=== PATIENT | male | born 1935 | race Caucasian/White ===

== ENCOUNTER → 2016-10-29 | Outpatient (CLI) | payer MEDICARE, BC ==
[~2016-10-29] MED LIST: ACTOS15 MG PO; ASP81TEC PO; DOCU100T7 PO; DPAS20025 PO; FRS325T PO; HYDR-2890 PO; LABE100T2 PO; LISI10TA PO; METO-272 PO; MULT-608 PO; PNT40TEC PO; ROSU20TA14 PO; SIMV40TA2 PO; TRIA1TAB42 PO; WRF2.5T PO
--- OUTSIDE RECORDS SUMMARY | 2016-10-29 13:45 | XMS REPORT | Continuity of Care Document ---
Author Author [facility] Organization [facility] Address Unknown Phone Unavailable Care Team Providers Care Pack Operator Name Role Phone Richard Rodríguez PCP [phone] Source Comments Some departments are not documenting in the electronic medical record. If you do not see the information that you expected, contact Release of Information in the Health Information Management department at [phone] for further assistance in locating additional records.[facility] Active Allergies and Adverse Reactions No Known Allergies Current Medications Prescription Sig. Disp. Refills Start End Date Status Date esomeprazole DR(+) take 40 mg by mouth At 09/11/20 Active (NEXIUM) 40 mg PO CpDR Bedtime Daily. 07 labetalol (NORMODYNE) 200 take 200 mg by mouth 09/11/20 Active mg PO Tab Twice Daily. 07 sucralfate (CARAFATE) 1 take 1 g by mouth Before 09/11/20 Active gram PO Tab Meals and at bedtime. 07 lisinopril (PRINIVIL; take 10 mg by mouth 09/11/20 Active ZESTRIL) 10 mg PO Tab Daily. 07 rosuvastatin (CRESTOR) 20 take 20 mg by mouth At 09/11/20 Active mg PO tablet Bedtime Daily. 07 triamterene/hydrochloroth take 1 Tab by mouth 09/11/20 Active iazide (MAXZIDE-25MG) Daily. 07 37.5/25 mg PO Tab multivitamin (THERAGRAN) take 1 Tab by mouth 09/11/20 Active PO per tablet Daily. [address](+) 09/28/20 Active (NEXIUM) 40 mg PO CpDR 07 tamsulosin (FLOMAX) 0.4 take 1 Cap by mouth Daily 30 3 12/10/20 Active mg PO Cp24 after breakfast. 07 senna/docusate take 2 Tabs by mouth 60 3 10/02/20 Active (SENOKOT-S) 8.6/50 mg PO Daily. Hold for loose 07 Tab stools. hydrocodone/acetaminophen take 1-2 Tabs by mouth 30 0 10/02/20 Active (VICODIN) 5/500 mg PO Tab Every 6 Hours as needed 07 for Pain. Do not exceed 4 grams of tylenol per day. dipyridamole/aspirin 1 Cap Twice Daily. 0 0 10/16/20 Active (AGGRENOX) 200/25 mg PO Restart in two weeks or 07 CM12 after follow up appointment with Dr. Anaya. 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
--- NOTE | 2016-10-29 14:57 | Diagnostic Imaging Report ---
INDICATION: Followup left renal cell carcinoma. Status post partial left nephrectomy. COMPARISON: 01/01/2008. DISCUSSION: Transabdominal sonographic evaluation of the bilateral kidneys and urinary bladder was performed. The kidneys are mildly echogenic, consistent with chronic medical renal disease. No solid renal mass identified. Hypoechoic simple appearing cysts are noted bilaterally measuring 1.8 cm on the right and 2.9 cm on the left. The kidneys are normal in size. The right kidney measures 11.9 cm. The left kidney measures 11.4 cm. No hydronephrosis. The visualized urinary bladder is unremarkable. IMPRESSION: 1. Echogenic kidneys. 2. Benign-appearing cystic changes. Dictated by: Dictated on workstation # [id number]
== END ==
LOC: RAD 13:42
PROVIDERS: ATTEND Family Medicine
DX: Z80.51 Family history of malignant neoplasm of kidney (principal)
CPT/HCPCS: 76770

== ENCOUNTER 2019-11-13 13:56 | Emergency (ER) | payer MEDICARE, BC ==
[~2019-11-13] VITALS: Ht 182 cm; Wt 90.9 kg
[2019-11-13 14:12] LABS: BASOPHILS % (AUTO) 0 % (0-10); EOSINOPHILS # (AUTO) 0.1 10^3/uL (0.0-0.3); EOSINOPHILS % (AUTO) 2 % (0-10); HEMATOCRIT 48 % (40-54); HEMOGLOBIN 16.1 G/DL (13.3-17.7); LYMPHOCYTES # (AUTO) 1.1 X 10^3 (1.0-4.0); LYMPHOCYTES % (AUTO) 14 % (12-44); MEAN CORPUSCULAR HEMOGLOBIN 32 PG (25-34); MEAN CORPUSCULAR HGB CONC 34 G/DL (32-36); MEAN CORPUSCULAR VOLUME 96 FL (80-99); MEAN PLATELET VOLUME 11.5 FL (7.4-10.4); MONOCYTES # (AUTO) 0.9 X 10^3 (0.0-1.0); MONOCYTES % (AUTO) 11 % (0-12); NEUTROPHILS # (AUTO) 5.6 X 10^3 (1.8-7.8); NEUTROPHILS % (AUTO) 73 % (42-75); PLATELET COUNT 214 10^3/uL (130-400); RED CELL DISTRIBUTION WIDTH 14.1 % (10.0-14.5); WHITE BLOOD COUNT 7.7 10^3/uL (4.3-11.0)
[2019-11-13 14:24] LABS: PROTHROMBIN TIME PATIENT 13.3 SEC (12.2-14.7)
[2019-11-13 14:33] LABS: ALANINE AMINOTRANSFERASE 19 U/L (0-55); ALBUMIN 3.9 GM/DL (3.2-4.5); ALKALINE PHOSPHATASE 81 U/L (40-136); BILIRUBIN,TOTAL 0.4 MG/DL (0.1-1.0); BUN/CREATININE RATIO 25; CALCIUM 9.7 MG/DL (8.5-10.1); CARBON DIOXIDE 24 MMOL/L (21-32); CHLORIDE 110 MMOL/L (98-107); CREATININE SERUM 1.22 MG/DL (0.60-1.30); GFR ESTIMATED 57; GLUCOSE 112 MG/DL (70-105); POTASSIUM 4.7 MMOL/L (3.6-5.0); SODIUM 144 MMOL/L (135-145); TOTAL PROTEIN 6.9 GM/DL (6.4-8.2)
[2019-11-13 14:43] LABS: ABG BASE EXCESS 1.1 MMOL/L (-2.5-2.5); ABG OXYGEN SATURATION 92 % (94-100); ABG PCO2 37 MMHG (35-45); ABG PH 7.44 (7.37-7.43); ABG PO2 61 MMHG (79-93)
[2019-11-13 14:45] LABS: INSPIRED O2 2 L; PATIENT TEMP 98.5; VENTILATOR NO
[2019-11-13] MEDS ORDERED: RT-ALBUTEROL/IPRATROPIUM 3 ML (DUONEB) VIAL INH ONE (14:45)
--- NOTE | 2019-11-13 14:51 | Diagnostic Imaging Report ---
INDICATION: Hypoxia. TIME OF EXAM: 02:41 p.m. COMPARISON: No prior studies available for comparison. FINDINGS: Heart size is normal. There appears to be some increased density in the left base obscuring the left hemidiaphragm, suggestive of pneumonia. The right lung is clear. The pulmonary vascularity is unremarkable. No significant effusion or pneumothorax is seen. IMPRESSION: Findings suggestive of left basilar pneumonia. Dictated by: Dictated on workstation # [id number]
[2019-11-13] MEDS ORDERED: cefTRIAXone FOR IV USE 1,000 MG in WATER (STERILE) FOR INJECTION 10 ML IV ONE (15:15)
[2019-11-13 15:25] LABS: BILIRUBIN,URINE NEGATIVE (NEGATIVE); CLARITY,URINE CLEAR; COLOR,URINE YELLOW; GLUCOSE, URINE (UA) NEGATIVE (NEGATIVE); KETONES,URINE NEGATIVE (NEGATIVE); LEUKOCYTE ESTERASE ,URINE NEGATIVE (NEGATIVE); NITRITE,URINE NEGATIVE (NEGATIVE); PH,URINE 5.5 (5-9); PROTEIN,URINE 2+ (NEGATIVE)
[2019-11-13] MEDS ORDERED: AZIT250T12 PO (15:31)
[2019-11-13] MEDS ORDERED: RT-ALBUINH IH (15:31)
--- NOTE | 2019-11-13 15:31 | ED Respiratory ---
General Chief Complaint: Respiratory Problems Stated Complaint: SOA,IRREGULAR HR Nursing Triage Note: SENT OVER FROM DR LARRY OFFICE FOR HYPOXIA. Source: patient Exam Limitations: no limitations History of Present Illness Date Seen by Provider: Nov 13, 2019 Time Seen by Provider: 14:02 Initial Comments This 84-year-old man presents to the emergency room by private vehicle from Dr. Galeano's office due to hypoxia. He was also thought to have an irregular rhythm at the office. He is fairly debilitated and does not walk much. He does not normally require oxygen supplementation. He denies any significant cough or fever. He denies chest pain. He does have a history of A. fib but is in sinus rhythm on presentation. Oxygen saturation is 88 percent on room air on presentation. He is afebrile. Allergies and Home Medications Allergies Coded Allergies: No Known Allergies (Verified Allergy, Unknown, 02/04/06) Home Medications Albuterol Sulfate 1 Puff Puff, 2 PUFF IH Q4H PRN for WHEEZING 1 PUFF = 90 MCG Prescribed by: WARNER MCCONNELL on 11/13/19 1531 Aspirin 81 Mg Tabec, 81 MG PO DAILY, (Reported) Azithromycin 250 Mg Tablet, 250 MG PO UD TAKE 2 TABLETS ON DAY ONE THEN TAKE 1 TABLET DAILY FOR FOUR MORE DAYS Prescribed by: WARNER MCCONNELL on 11/13/19 1531 Docusate Sodium 100 Mg Tablet, 100 MG PO PRN, (Reported) Ferrous Sulfate 325 Mg Tablet, 1 TAB PO DAILY, (Reported) Lisinopril 10 Mg Tablet, 1 EACH PO DAILY, (Reported) Metoprolol Succinate 50 Mg Tab.sr.24h, 1 EACH PO DAILY, (Reported) Rosuvastatin Calcium 20 Mg Tablet, 1 EACH PO DAILY, (Reported) Patient Home Medication List Home Medication List Reviewed: Yes Review of Systems Review of Systems Constitutional: no symptoms reported EENTM: no symptoms reported Respiratory: see HPI Cardiovascular: no symptoms reported Gastrointestinal: no symptoms reported Genitourinary: no symptoms reported Musculoskeletal: see HPI Skin: no symptoms reported Psychiatric/Neurological: See HPI Hematologic/Lymphatic: No Symptoms Reported Immunological/Allergic: no symptoms reported Past Zpvvtjd-Isrlqy-Tijrxb Hx Past Med/Social Hx: Reviewed and Corrections made Patient Social History Alcohol Use: Denies Use Recreational Drug Use: No Smoking Status: Never a Smoker Type Used: Smokeless Tobacco Recent Foreign Travel: No Contact w/Someone Who Travel: No Recent Infectious Disease Expo: No Recent Hopitalizations: Yes (RENAL CA, PROSTATE CA, SKIN CA) Past Medical History Surgeries: Yes (LEFT PARTIAL NEPHRECTOMY, RT TKR) Joint Replacement, Renal Respiratory: No Cardiac: Yes (MITRAL VALVE REGURGITATION) Atrial Fibrillation, Hypertension Neurological: Yes (HX SUBDURAL HEMATOMA, lower extremity weakness with debility ) Reproductive Disorders: No Gastrointestinal: No Musculoskeletal: Yes (Lower extremity weakness, debility) Endocrine: No HEENT: No Cancer: No Psychosocial: No Integumentary: No Blood Disorders: No Physical Exam Vital Signs - First Documented 11/13/19 13:58 Temp 36.5 Pulse 72 Resp 16 B/P (MAP) 176/79 (111) Pulse Ox 88 O2 Delivery Nasal Cannula O2 Flow Rate 2.00 Capillary Refill : Less Than 3 Seconds Height: 6'0.00" Weight: 207lbs. oz. 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, alert, normal mood/affect, oriented x 3, motor weakness (lower extremities) Skin: normal color, warm/dry Focused Exam Lactate Level 11/13/19 14:03: Lactic Acid Level 1.86 Lactic Acid Level Laboratory Tests Test 11/13/19 14:03 Lactic Acid Level 1.86 MMOL/L (0.50-2.00) Progress/Results/Core Measures Suspected Sepsis Recent Fever Within 48 Hours: No Infection Criteria Present: Suspected New Infection New/Unexplained Altered Menta: No Sepsis Screen: No Definite Risk SIRS Temperature: Pulse: 72 Respiratory Rate: 16 Laboratory Tests 11/13/19 14:03: White Blood Count 7.7 Blood Pressure 176 /79 Mean: 111 11/13/19 14:03: Lactic Acid Level 1.86 Laboratory Tests 11/13/19 14:03: Creatinine 1.22, INR Comment 1.0, Platelet Count 214, Total Bilirubin 0.4 Results/Orders Lab Results Laboratory Tests Test 11/13/19 14:03 11/13/19 14:33 11/13/19 15:20 Range/Units White Blood Count 7.7 4.3-11.0 10^3/uL Red Blood Count 4.98 4.35-5.85 10^6/uL Hemoglobin 16.1 13.3-17.7 G/DL Hematocrit 48 40-54 % Mean Corpuscular Volume 96 80-99 FL Mean Corpuscular Hemoglobin 32 25-34 PG Mean Corpuscular Hemoglobin Concent 34 32-36 G/DL Red Cell Distribution Width 14.1 10.0-14.5 % Platelet Count 214 130-400 10^3/uL Mean Platelet Volume 11.5 H 7.4-10.4 FL Neutrophils (%) (Auto) 73 42-75 % Lymphocytes (%) (Auto) 14 12-44 % Monocytes (%) (Auto) 11 0-12 % Eosinophils (%) (Auto) 2 0-10 % Basophils (%) (Auto) 0 0-10 % Neutrophils # (Auto) 5.6 1.8-7.8 X 10^3 Lymphocytes # (Auto) 1.1 1.0-4.0 X 10^3 Monocytes # (Auto) 0.9 0.0-1.0 X 10^3 Eosinophils # (Auto) 0.1 0.0-0.3 10^3/uL Basophils # (Auto) 0.0 0.0-0.1 10^3/uL Prothrombin Time 13.3 12.2-14.7 SEC INR Comment 1.0 0.8-1.4 Activated Partial Thromboplast Time 29 24-35 SEC Sodium Level 144 135-145 MMOL/L Potassium Level 4.7 3.6-5.0 MMOL/L Chloride Level 110 H 98-107 MMOL/L Carbon Dioxide Level 24 21-32 MMOL/L Anion Gap 10 5-14 MMOL/L Blood Urea Nitrogen 30 H 7-18 MG/DL Creatinine 1.22 0.60-1.30 MG/DL Estimat Glomerular Filtration Rate 57 BUN/Creatinine Ratio 25 Glucose Level 112 H 70-105 MG/DL Lactic Acid Level 1.86 0.50-2.00 MMOL/L Calcium Level 9.7 8.5-10.1 MG/DL Corrected Calcium 9.8 8.5-10.1 MG/DL Total Bilirubin 0.4 0.1-1.0 MG/DL Aspartate Amino Transf (AST/SGOT) 20 5-34 U/L Alanine Aminotransferase (ALT/SGPT) 19 0-55 U/L Alkaline Phosphatase 81 40-136 U/L Troponin I < 0.028 <0.028 NG/ML Total Protein 6.9 6.4-8.2 GM/DL Albumin 3.9 3.2-4.5 GM/DL Blood Gas Puncture Site UNK Blood Gas Patient Temperature 98.5 Arterial Blood pH 7.44 H 7.37-7.43 Arterial Blood Partial Pressure CO2 37 35-45 MMHG Arterial Blood Partial Pressure O2 61 L 79-93 MMHG Arterial Blood HCO3 25 23-27 MMOL/L Arterial Blood Total CO2 26.0 21.0-31.0 MMOL/L Arterial Blood Oxygen Saturation 92 L 94-100 % Arterial Blood Base Excess 1.1 -2.5-2.5 MMOL/L Georgi Test UNK Blood Gas Ventilator Setting NO Blood Gas Inspired Oxygen 2 L Urine Color YELLOW Urine Clarity CLEAR Urine pH 5.5 5-9 Urine Specific [place] 1.025 H 1.016-1.022 Urine Protein 2+ H NEGATIVE Urine Glucose (UA) NEGATIVE NEGATIVE Urine Ketones NEGATIVE NEGATIVE Urine Nitrite NEGATIVE NEGATIVE Urine Bilirubin NEGATIVE NEGATIVE Urine Urobilinogen 0.2 < = 1.0 MG/DL Urine Leukocyte Esterase NEGATIVE NEGATIVE Urine RBC (Auto) 1+ H NEGATIVE Urine RBC 2-5 H /HPF Urine WBC NONE /HPF Urine Squamous Epithelial Cells 0-2 /HPF Urine Crystals NONE /LPF Urine Bacteria TRACE /HPF Urine Casts PRESENT /LPF Urine Hyaline Casts 0-2 H /LPF Urine Mucus NEGATIVE /LPF Urine Culture Indicated NO Micro Results Microbiology 11/13/19 Urine Culture - Preliminary, Resulted Gram Negative Sarbjit 11/13/19 Influenza Types A,B Antigen (JOSE L) - Final, Complete My Orders Orders - WARNER SIMMONS MD Cbc With Automated Diff (11/13/19 14:03) Comprehensive Metabolic Panel (11/13/19 14:03) Blood Culture (11/13/19 14:03) Urinalysis (11/13/19 14:03) Urine Culture (11/13/19 14:03) Protime With Inr (11/13/19 14:03) Partial Thromboplastin Time (11/13/19 14:03) Chest 1 View, Ap/Pa Only (11/13/19 14:03) Ed Iv/Invasive Line Start (11/13/19 14:03) Ed Iv/Invasive Line Start (11/13/19 14:03) Ekg Tracing (11/13/19 14:03) Troponin I (11/13/19 14:03) Vital Signs Adult Sepsis Patie Q15M (11/13/19 14:03) O2 (11/13/19 14:03) Remove Rings In Anticipation O (11/13/19 14:03) Lactic Acid Analyzer (11/13/19 14:03) Arterial Blood Gas (11/13/19 14:05) Influenza A And B Antigens (11/13/19 14:08) Albuterol/Ipra Inhalation Soln (Duoneb I (11/13/19 14:45) Svn Small Volume Nebulizer (11/13/19 14:44) Ceftriaxone For Iv Use (Rocephin For I (11/13/19 15:15) Medications Given in ED Vital Signs/I&O 11/13/19 11/13/19 11/13/19 11/13/19 13:58 13:58 15:24 16:05 Temp 36.5 Pulse 72 64 Resp 16 20 B/P (MAP) 176/79 (111) 151/73 Pulse Ox 88 87 96 89 O2 Delivery Nasal Cannula Room Air Nasal Cannula Room Air O2 Flow Rate 2.00 2.00 Capillary Refill : Less Than 3 Seconds Blood Pressure Mean: 111 Progress Note : Time: 14:25 Progress Note Chest x-ray was read as pneumonia. Patient received a DuoNeb treatment and Rocephin. Because of the hypoxia admission was recommended. Patient refused admission had asked to sign out AGAINST MEDICAL ADVICE. Albuterol inhaler and antibiotics were prescribed. ECG Initial ECG Impression Date: Nov 13, 2019 Initial ECG Impression Time: 13:57 Initial ECG Rate: 72 Initial ECG Rhythm: Normal Sinus Comment Sinus rhythm with PACs. No acute ST elevation or depression. Chronic left bundle branch block. Diagnostic Imaging Diagonstic Imaging: Xray Plain Films/CT/US/NM/MRI: chest Comments Chest x-ray viewed by me and report reviewed. See report below: NAME: INDRA ROLON Nadir [facility] REC#: [id number] PT STATUS: REG ER : 1935 PHYSICIAN: WARNER SIMMONS MD ADMIT DATE: 11/13/19/ER Signed Date of Exam:11/13/19 CHEST 1 VIEW, AP/PA ONLY INDICATION: Hypoxia. TIME OF EXAM: 02:41 p.m. COMPARISON: No prior studies available for comparison. FINDINGS: Heart size is normal. There appears to be some increased density in the left base obscuring the left hemidiaphragm, suggestive of pneumonia. The right lung is clear. The pulmonary vascularity is unremarkable. No significant effusion or pneumothorax is seen. IMPRESSION: Findings suggestive of left basilar pneumonia. Dictated by: Dictated on workstation # [id number] Dict: 11/13/19 1446 Trans: 11/13/19 1557 [facility] [id number] Interpreted by: SHANDA LAYNE MD Electronically signed by: SHANDA LAYNE MD 11/13/19 1557 Departure Impression Primary Impression: Left lower lobe pneumonia Qualified Codes: J18.1 - Lobar pneumonia, unspecified organism Additional Impressions: Hypoxia Wheezing Left against medical advice Disposition: 07 AGAINST MEDICAL ADVICE Condition: Against Medical Advice Departure-Patient Inst. Decision time for Depature: 15:29 Referrals: GEOVANNA GALEANO DO (PCP/Family) Primary Care Physician Patient Instructions: Community-Acquired Pneumonia, Adult (DC) Add. Discharge Instructions: You're leaving the hospital AGAINST MEDICAL ADVICE which but she at risk for dangerous consequences from your illness. Lack of inpatient treatment could result in worsening of your condition and possibly . Please complete your antibiotics as prescribed. Use your inhaler as prescribed. Follow-up with Dr. Galeano as soon as possible. Return to care if you would like to proceed with admission or your symptoms worsen. All discharge instructions reviewed with patient and/or family. Voiced understanding. Scripts Albuterol Sulfate (PROAIR HFA) 1 Puff Puff 2 PUFF IH Q4H PRN for WHEEZING, #1 PUFF 1 PUFF = 90 MCG Prov: WARNER SIMMONS MD 11/13/19 Azithromycin (Azithromycin) 250 Mg Tablet 250 MG PO UD, #6 TAB TAKE 2 TABLETS ON DAY ONE THEN TAKE 1 TABLET DAILY FOR FOUR MORE DAYS Prov: WARNER SIMMONS MD 11/13/19 Copy Copies To 1: GEOVANNA GALEANO JOSHUA T MD Nov 13, 2019 15:31
[2019-11-13 15:37] LABS: BACTERIA,URINE TRACE /HPF; HYALINE CASTS, URINE 0-2 /LPF; SQUAMOUS EPITHELIAL CELL,UR 0-2 /HPF
[2019-11-13 16:05] VITALS: BP 151/73
--- NOTE | 2019-11-13 16:05 | NUR ---
ENC TO BRING PT BACK IF PT CONDITION WORSENS
== END 2019-11-13 16:05 | disposition left against medical advice (07) ==
LOC: EDUNIT# 13:56 → ER 13:58
DX: J18.9 Pneumonia, unspecified organism (principal); R09.02 Hypoxemia; R06.2 Wheezing; I10 Essential (primary) hypertension; I48.91 Unspecified atrial fibrillation; Z79.82 Long term (current) use of aspirin; Z85.828 Personal history of other malignant neoplasm of skin; Z85.528 Personal history of other malignant neoplasm of kidney; Z85.46 Personal history of malignant neoplasm of prostate; Z96.651 Presence of right artificial knee joint; Z90.5 Acquired absence of kidney
CPT/HCPCS: 36415; 71045; 80053; 81000; 82805; 83605; 84484; 85025; 85610; 85730; 87040; 87077; 87088; 87186; 87804; 93005; 94640; 96374

== ENCOUNTER → 2020-04-03 | Outpatient (CLI) | payer MEDICARE, BC ==
[~2020-04-03] MED LIST changes: +AZIT250T12 PO; +CEPH-507 PO; +RT-ALBUINH IH
--- NOTE | 2020-04-03 17:13 | Diagnostic Imaging Report ---
PROCEDURE: CT abdomen and pelvis without contrast. TECHNIQUE: Multiple contiguous axial images were obtained through the abdomen and pelvis without the use of intravenous contrast. Auto Exposure Controls were utilized during the CT exam to meet ALARA standards for radiation dose reduction. INDICATION: Gross hematuria with history of left renal cancer. CORRELATION STUDY: 08/28/2014 FINDINGS: Cardiac enlargement. Large hiatal hernia with atelectasis at the left lung base. The unenhanced liver, spleen, atrophic pancreas adrenal glands are unremarkable. There are several small gallstones with the gallbladder otherwise unremarkable. No bile ductal dilatation. Prominent aortoiliac wall calcification, nonaneurysmal. Diffuse thinning of the renal parenchyma of both kidneys. 2.5 cm low density mass superior pole right kidney compatible with a cyst. 2.6 cm low-density mass interpolar region left kidney also suggestive of cyst. Some slight asymmetric distortion of the left perirenal fat. No calcification. There is no obstructive uropathy. Urinary bladder is mildly distended but otherwise unremarkable. Gastrointestinal tract demonstrates moderate severity fecal retention of stool throughout the colon. Mild colonic diverticulosis. No obstruction or inflammation. Normal appendix present. Fat-containing umbilical hernia. The prostate gland unremarkable for the the patient's age. Osseous structures demonstrate no acute abnormality. Advanced degenerative changes of the lumbar spine. Leftward curvature present. Probable hemangioma at L3 level. IMPRESSION: 1. Bilateral renal cysts. No evidence for nephrolithiasis. No etiology for the presentation of hematuria. 2. Moderate severity fecal retention. Dictated by: Dictated on workstation # [id number]
== END ==
LOC: RAD 16:18
PROVIDERS: ATTEND Family Medicine
DX: N28.1 Cyst of kidney, acquired (principal); R31.0 Gross hematuria; Z85.528 Personal history of other malignant neoplasm of kidney
CPT/HCPCS: 74176

== ENCOUNTER → 2020-12-09 | Outpatient (CLI) | payer MEDICARE, BC ==
[~2020-12-09] VITALS: Ht 182.8 cm; Wt 82.0 kg
[~2020-12-09] MED LIST changes: +BAMLANIVIMAB (NON FORM) 700 MG in NS (IVPB) 100 ML IV ONE; +EPINEPHrine INJECTION 1 MG/ML AMP IM PRN; +diphenhydrAMINE 50 MG/ML INJ (BENADRYL) IV PRN
[2020-12-09 13:10] VITALS: BP 130/52
[2020-12-09 14:41] VITALS: BP 128/49
== END ==
LOC: INFUSION 13:25
PROVIDERS: ATTEND Family Medicine
DX: U07.1 COVID-19 (principal)

== ENCOUNTER → 2020-12-13 | Outpatient (CLI) | payer MEDICARE, BC ==
[~2020-12-13] MED LIST changes: -BAMLANIVIMAB (NON FORM) 700 MG in NS (IVPB) 100 ML IV ONE; -EPINEPHrine INJECTION 1 MG/ML AMP IM PRN; -diphenhydrAMINE 50 MG/ML INJ (BENADRYL) IV PRN
== END ==
LOC: LABNPT 12:27
PROVIDERS: ATTEND Family Medicine
DX: R31.0 Gross hematuria (principal)
CPT/HCPCS: 87088

== ENCOUNTER → 2020-12-29 | Outpatient (CLI) | payer MEDICARE, BC ==
--- NOTE | 2020-12-29 14:49 | Diagnostic Imaging Report ---
PROCEDURE: CT abdomen and pelvis without contrast. TECHNIQUE: Multiple contiguous axial images were obtained through the abdomen and pelvis without the use of intravenous contrast. Auto Exposure Controls were utilized during the CT exam to meet ALARA standards for radiation dose reduction. INDICATION: Gross hematuria. COMPARISON: Correlation is made with prior CT from 04/03/2020. FINDINGS: Imaging through the lung bases does show some infiltrate or atelectasis in the left lower lobe. There is a large hiatal hernia. No discrete liver mass is identified. There appear to be small stones in the gallbladder. No biliary ductal dilatation is seen. The pancreas and spleen are unremarkable. No adrenal mass is detected. The kidneys again contain cortical low-attenuation lesions, consistent with cysts. No calculi or hydronephrosis are identified. Aorta is calcified but nonaneurysmal. No bladder mass is identified on this noncontrast study. The prostate is unremarkable. The small and large bowel loops are normal in caliber. There is no obstruction. There is a fat-containing umbilical hernia. There is diverticulosis of the sigmoid but no evidence of acute diverticulitis. There is no free fluid or fluid collection. Bony structures appear stable. IMPRESSION: 1. Large hiatal hernia. 2. Cholelithiasis. 3. Uncomplicated diverticulosis. 4. Bilateral renal cysts. No calculi or hydronephrosis are detected. 5. Fat-containing umbilical hernia. Dictated by: Dictated on workstation # [id number]
== END ==
LOC: RAD 13:44
PROVIDERS: ATTEND Urology
DX: N28.1 Cyst of kidney, acquired (principal); K80.20 Calculus of gallbladder without cholecystitis without obstruction; K57.30 Diverticulosis of large intestine without perforation or abscess without bleeding; K44.9 Diaphragmatic hernia without obstruction or gangrene; K42.9 Umbilical hernia without obstruction or gangrene
CPT/HCPCS: 74176

== ENCOUNTER 2021-10-29 19:28 | Inpatient (IN) | payer MEDICARE, BC ==
[2021-10-29 19:50] LABS: BILIRUBIN,URINE NEGATIVE (NEGATIVE); CLARITY,URINE CLEAR; COLOR,URINE YELLOW; GLUCOSE, URINE (UA) 2+ (NEGATIVE); KETONES,URINE NEGATIVE (NEGATIVE); LEUKOCYTE ESTERASE ,URINE NEGATIVE (NEGATIVE); NITRITE,URINE NEGATIVE (NEGATIVE); PH,URINE 5.5 (5-9); PROTEIN,URINE 1+ (NEGATIVE)
--- NOTE | 2021-10-29 19:51 | ED General ---
General Stated Complaint: AMS Source of Information: Patient (PT WITH DEMENTIA, BUT CAN ANSWER BASIC YES/NO QUESTIONS AND FOLLOW SIMPLE COMMANDS), EMS, [facility] Records History of Present Illness Date Seen by Provider: Oct 29, 2021 Time Seen by Provider: 19:24 Initial Comments PT ARRIVES VIA EMS FROM VIA [facility], [place] PT WITH DEMENTIA AND IS REPORTEDLY AT NORMAL BASELINE, PER SNF PT HAS GOTTEN OUT OF BED SEVERAL TIMES, AND NURSING STAFF REPORT THAT THEY "KEEP FINDING HIM ON THE FLOOR" --NONE OF THESE WERE ACTUALLY WITNESSED BY NURSING STAFF THEY REPORT THAT PT DOES NOT NORMALLY DO THIS. THERE IS NO EVIDENCE OF INJURY ANYWHERE PT HAS NO COMPLAINTS ON DIRECT QUESTIONING. PT DENIES PAIN ANYWHERE AND STATES THAT HE FEELS FINE THERE ARE AT LEAST 4 RESIDENTS IN SAME [facility]LTON OF SNF, WITH COVID-19. PCP: DR. CHASE Allergies and Home Medications Allergies Coded Allergies: [place] Known Allergies (Verified Allergy, Unknown, 02/04/06) Patient Home Medication List Home Medication List Reviewed: Yes Albuterol Sulfate (Proair Hfa) 1 Puff Puff, 2 PUFF IH Q4H PRN for WHEEZING Prescribed by: WARNER MCCONNELL on 11/13/19 1531 Aspirin (Aspirin Ec 81 Mg) 81 Mg Tabec, 81 MG PO DAILY, (Reported) Entered as Reported by: MONROE YAN on 11/30/11 1208 Azithromycin (Azithromycin) 250 Mg Tablet, 250 MG PO UD Prescribed by: WARNER MCCONNELL on 11/13/19 1531 Cephalexin (Keflex) 500 Mg Capsule, 500 MG PO QID, (Reported) Entered as Reported by: HUI CHANG on 11/22/19 1435 Docusate Sodium (Stool Softener) 100 Mg Tablet, 100 MG PO PRN, (Reported) Entered as Reported by: MONROE YAN on 11/30/11 1208 Ferrous Sulfate (Iron) 325 Mg Tablet, 1 TAB PO DAILY, (Reported) Entered as Reported by: MONROE YAN on 11/30/11 1208 Hydrocodone Bit/Acetaminophen (Hydrocodon-Acetaminophn 10-325) 1 Each Tablet, 1 EACH PO, (Reported) Entered as Reported by: INDIRA HAZEL on 04/21/11 1022 Lisinopril (Zestril) 10 Mg Tablet, 1 EACH PO DAILY, (Reported) Entered as Reported by: INDIRA HAZEL on 04/21/11 1022 Metoprolol Succinate (Metoprolol Succinate Xl 50 Mg) 50 Mg Tab.sr.24h, 1 EACH PO DAILY, (Reported) Entered as Reported by: MONROE YAN on 11/30/11 1208 Multivitamins (Multiple Vitamin) 1 Tab Tablet, 1 TAB PO, (Reported) Entered as Reported by: INDIRA HAZEL on 04/21/11 1022 Pantoprazole Sod (Protonix Tab) 40 Mg Tab, 40 MG PO, (Reported) Entered as Reported by: INDIRA HAZEL on 04/21/11 1022 Rosuvastatin Calcium (Crestor) 20 Mg Tablet, 1 EACH PO DAILY, (Reported) Entered as Reported by: MONROE YAN on 11/30/11 1208 Review of Systems Review of Systems Constitutional: weakness EENTM: no symptoms reported Respiratory: no symptoms reported; No cough, No short of breath Cardiovascular: no symptoms reported Gastrointestinal: no symptoms reported; No diarrhea, No vomiting Genitourinary: no symptoms reported Musculoskeletal: no symptoms reported; No back pain, No joint pain, No neck pain Skin: no symptoms reported Psychiatric/Neurological: See HPI; Denies Headache, Denies Numbness, Denies Paresthesia Hematologic/Lymphatic: No Symptoms Reported Immunological/Allergic: no symptoms reported Past Cnbwufi-Efcoco-Wxmora Hx Past Medical History Surgeries: Yes (LEFT PARTIAL NEPHRECTOMY, RT TKR) Joint Replacement, Orthopedic, Renal Respiratory: No Cardiac: Yes (MITRAL VALVE REGURGITATION) Atrial Fibrillation, High Cholesterol, Hypertension, Valvular Heart Disease Neurological: Yes (HX SUBDURAL HEMATOMA, lower extremity weakness with debility;) Dementia, Stroke, Traumatic Brain Injury Reproductive Disorders: No Genitourinary: Yes Benign Prostatic Hyperpl, Prostate Problems Gastrointestinal: Yes Gastroesophageal Reflux Musculoskeletal: Yes (Lower extremity weakness, debility;gait disturbance) Arthritis Endocrine: No HEENT: Yes (dysarthria post cva) Hearing Impairment: Hard of Hearing Cancer: No Psychosocial: Yes Depression Integumentary: No Blood Disorders: No Physical Exam Vital Signs Vital Signs - First Documented 10/29/21 10/29/21 19:28 21:00 Temp 36.2 Pulse 68 Resp 19 B/P (MAP) 153/74 (100) Pulse Ox 94 O2 Delivery Room Air O2 Flow Rate 2.00 Capillary Refill : Height, Weight, BMI Height: 6'0.00" Weight: 207lbs. oz. 93.740586id; 27.00 BMI Method: General Appearance: No Apparent Distress, WD/WN HEENT: PERRL/EOMI, TMs Normal, Normal ENT Inspection, Pharynx Normal Neck: Normal Inspection, Non Tender, Supple Respiratory: Chest Non Tender, Normal Breath Sounds, No Accessory Muscle Use, No Respiratory Distress Cardiovascular: Regular Rate, Rhythm, No Edema, No JVD, No Murmur, Normal Peripheral Pulses Gastrointestinal: Non Tender, Soft Back: Normal Inspection, No CVA Tenderness, No Vertebral Tenderness Extremity: Normal Capillary Refill, Normal Inspection, Normal Range of Motion, Non Tender Neurologic/Psychiatric: Alert, No Motor/Sensory Deficits, Normal Mood/Affect, shredded filler hopper feeder II-XII Norm as Tested, Other (SOME GENERALIZED WEAKNESS, NO FOCAL DEFICITS. ABLE TO FOLLOW SIMPLE COMMANDS AND ANSWER SIMPLE QUESTIONS. SPEECH IS CLEAR. KNOWS NAME, AND PLACE, SOMEWHAT ORIENTED TO SITUATION AND TIME OF YEAR. POOR MEMORY. ) Skin: Normal Color, Warm/Dry, Other (NO EXTERNAL EVIDENCE OF TRAUMA ANYWHERE) Focused Exam Lactate Level 10/29/21 19:35: Lactic Acid Level 1.98 Lactic Acid Level Laboratory Tests Test 10/29/21 19:35 Lactic Acid Level 1.98 MMOL/L (0.50-2.00) Progress/Results/Core Measures Suspected Sepsis SIRS Temperature: Pulse: Respiratory Rate: Laboratory Tests 10/29/21 19:35: White Blood Count 7.9 Blood Pressure / Mean: 10/29/21 19:35: Lactic Acid Level 1.98 Laboratory Tests 10/29/21 19:35: Creatinine 1.56H, INR Comment 1.0, Platelet Count 203, Total Bilirubin 0.7 Results/Orders Lab Results Laboratory Tests Test 10/29/21 19:35 10/29/21 19:36 10/29/21 19:44 Range/Units White Blood Count 7.9 4.3-11.0 10^3/uL Red Blood Count 5.01 4.30-5.52 10^6/uL Hemoglobin 15.8 13.3-17.7 g/dL Hematocrit 48 40-54 % Mean Corpuscular Volume 96 80-99 fL Mean Corpuscular Hemoglobin 32 25-34 pg Mean Corpuscular Hemoglobin Concent 33 32-36 g/dL Red Cell Distribution Width 14.5 10.0-14.5 % Platelet Count 203 130-400 10^3/uL Mean Platelet Volume 11.3 9.0-12.2 fL Immature Granulocyte % (Auto) 0 % Neutrophils (%) (Auto) 74 42-75 % Lymphocytes (%) (Auto) 9 L 12-44 % Monocytes (%) (Auto) 16 H 0-12 % Eosinophils (%) (Auto) 1 0-10 % Basophils (%) (Auto) 0 0-10 % Neutrophils # (Auto) 5.8 1.8-7.8 10^3/uL Lymphocytes # (Auto) 0.7 L 1.0-4.0 10^3/uL Monocytes # (Auto) 1.2 H 0.0-1.0 10^3/uL Eosinophils # (Auto) 0.1 0.0-0.3 10^3/uL Basophils # (Auto) 0.0 0.0-0.1 10^3/uL Immature Granulocyte # (Auto) 0.0 0.0-0.1 10^3/uL Erythrocyte Sedimentation Rate 6 0-30 MM/HR Prothrombin Time 13.5 12.2-14.7 SEC INR Comment 1.0 0.8-1.4 Activated Partial Thromboplast Time 28 24-35 SEC Sodium Level 144 135-145 MMOL/L Potassium Level 3.6 3.6-5.0 MMOL/L Chloride Level 107 98-107 MMOL/L Carbon Dioxide Level 23 21-32 MMOL/L Anion Gap 14 5-14 MMOL/L Blood Urea Nitrogen 41 H 7-18 MG/DL Creatinine 1.56 H 0.60-1.30 MG/DL Estimat Glomerular Filtration Rate 43 BUN/Creatinine Ratio 26 Glucose Level 125 H 70-105 MG/DL Lactic Acid Level 1.98 0.50-2.00 MMOL/L Calcium Level 10.2 H 8.5-10.1 MG/DL Corrected Calcium 10.4 H 8.5-10.1 MG/DL Magnesium Level 2.4 1.6-2.4 MG/DL Total Bilirubin 0.7 0.1-1.0 MG/DL Aspartate Amino Transf (AST/SGOT) 29 5-34 U/L Alanine Aminotransferase (ALT/SGPT) 24 0-55 U/L Alkaline Phosphatase 78 40-136 U/L Total Creatine Kinase 491 H 30-200 U/L Creatine Kinase MB 7.1 *H <6.6 NG/ML Myoglobin 855.4 H 10.0-92.0 NG/ML Troponin I 0.037 H <0.028 NG/ML C-Reactive Protein High Sensitivity 3.36 H 0.00-0.50 MG/DL B-Type Natriuretic Peptide 291.5 H <100.0 PG/ML Total Protein 7.0 6.4-8.2 GM/DL Albumin 3.8 3.2-4.5 GM/DL Lipase 13 8-78 U/L Procalcitonin 0.10 H <0.10 NG/ML TSH [place] Testing 2.16 0.35-4.94 UIU/ML Glucometer 125 H 70-110 MG/DL Urine Color YELLOW Urine Clarity CLEAR Urine pH 5.5 5-9 Urine Specific [place] 1.020 1.016-1.022 Urine Protein 1+ H NEGATIVE Urine Glucose (UA) 2+ H NEGATIVE Urine Ketones NEGATIVE NEGATIVE Urine Nitrite NEGATIVE NEGATIVE Urine Bilirubin NEGATIVE NEGATIVE Urine Urobilinogen 0.2 < = 1.0 MG/DL Urine Leukocyte Esterase NEGATIVE NEGATIVE Urine RBC (Auto) 2+ H NEGATIVE Urine RBC 0-2 /HPF Urine WBC RARE /HPF Urine Crystals PRESENT H /LPF Urine Amorphous Sediment LARGE SAL URATES H /LPF Urine Bacteria TRACE /HPF Urine Casts NONE /LPF Urine Mucus NEGATIVE /LPF Urine Culture Indicated NO My Orders Orders - ENEDINA LIZARRAGA DO Ed Iv/Invasive Line Start (10/29/21 19:32) Ekg Tracing (10/29/21 19:32) O2 (10/29/21 19:32) Monitor-Rhythm Ecg Trace Only (10/29/21 19:32) Straight Cath For Spec.-Adult (10/29/21 19:32) Ct Head/Cervical Spine Wo (10/29/21 19:32) Chest 1 View, Ap/Pa Only (10/29/21 19:32) Pelvis (10/29/21 19:32) Bnp Bird (10/29/21 19:32) Cbc With Automated Diff (10/29/21 19:32) Comprehensive Metabolic Panel (10/29/21 19:32) Creatine Kinase (10/29/21 19:32) Creatine Kinase Mb (10/29/21 19:32) Hs C Reactive Protein (10/29/21 19:32) Lipase (10/29/21 19:32) Magnesium (10/29/21 19:32) Procalcitonin (Pct) (10/29/21 19:32) Protime With Inr (10/29/21 19:32) Partial Thromboplastin Time (10/29/21 19:32) Thyroid Analyzer (10/29/21 19:32) Ua Culture If Indicated (10/29/21 19:32) Erythrocyte Sedimentation Rate (10/29/21 19:32) Myoglobin Serum (10/29/21 19:32) Troponin I [place] (10/29/21 19:32) Influenza A & B Antigens (10/29/21 19:32) Isolation Central Supply Req (10/29/21 19:32) Lactic Acid Analyzer (10/29/21 19:40) Blood Culture (10/29/21 19:40) Vital Signs/I&O 10/29/21 10/29/21 19:28 21:00 Temp 36.2 Pulse 68 Resp 19 B/P (MAP) 153/74 (100) Pulse Ox 94 96 O2 Delivery Room Air Nasal Cannula O2 Flow Rate 2.00 Capillary Refill : Progress Note : Progress Note NO DETERIORATION IN PT'S CONDITION DURING ER STAY PT IS A FULL CODE ECG Initial ECG Impression Date: Oct 29, 2021 Initial ECG Impression Time: 19:45 Initial ECG Rate: 69 Initial ECG Rhythm: Normal Sinus Initial ECG Impression: Nonspecific Changes, 1st Degree AV Block Diagnostic Imaging Comments CXR--PER RADIOLOGIST REPORT AT 2042 COMPARISON: 11/13/2019 FINDINGS: Lungs/pleura: The left costophrenic angle region is obscured and cannot be completely evaluated. There is mild amorphous airspace opacities involving both lung bases left side more the right. The remainder of the lungs are clear. There is no pneumothorax. There is no pleural effusion. Mediastinum: Unremarkable. Pulmonary vasculature: There is mild pulmonary vascular congestion which is most pronounced centrally.. Heart: There is cardiomegaly which has increased in interim.. Bones/extrathoracic soft tissue: There are hypertrophic spurs involving the thoracic spine. IMPRESSION: 1: There is cardiomegaly with mild pulmonary vascular congestion which is most pronounced centrally. 2: There is mild bibasilar atelectasis versus infiltrate. 3: Left costophrenic angle region is incompletely imaged and cannot be evaluated. PELVIS XRAY--PER RADIOLOGIST REPORT AT 2042 FINDINGS: Of note, the lateral aspect of the right greater trochanter is not completely imaged. There is no fracture or dislocation of the pelvis, hips, sacrum, or lower lumbar spine, as visualized. There are hypertrophic spurs involving the lower lumbar spine. Bowel gas obscures portions of the sacrum. There is spurring of the symphysis pubis region. There are small spurs involving the acetabular regions and right femoral head/neck junction region. IMPRESSION: There is no acute fracture or dislocation, as visualized. CT HEAD/CERVICAL SPINE--PER RADIOLOGIST REPORT AT 2042 Findings: Head CT: There is no evidence of acute cerebral infarct, intracranial hemorrhage, or gross mass effect. 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 There is brain parenchymal volume loss. There is a small chronic infarct involving left thalamus. There are small chronic infarct involving the right cerebellum. There is chronic small vessel ischemic disease involving both cerebral hemispheres. There is no hydrocephalus, brain herniation or midline shift. There is no intracranial hemorrhage. Basal cisterns are unremarkable. Right-sided yessy hole craniotomies are noted. There is no skull fracture. Otherwise, the extracranial soft tissues, skull, and orbits are unremarkable. There is mild mucosal thickening involving both maxillary sinuses and mild to moderate mucosal thickening involving ethmoid sinus. Mastoid air cells are clear. Cervical spine: There is no acute cervical spine fracture or dislocation. There are hypertrophic spurs and facet arthropathy throughout cervical spine. The neck soft tissue structures are unremarkable. Visualized upper lung cummins are clear. Impression: 1: There is no evidence of acute intracranial process. There is no intracranial hemorrhage or skull fracture. 2: Cervical spine degenerative disease with no acute fracture or dislocation. 3: There is small chronic infarct involving the left thalamus and right cerebellum. Reviewed: Reviewed by Tx Departure Communication (Admissions) 2044--MESSAGE LEFT ON DR. CHASE'S CELL 2049--SPOKE WITH DR. CHASE, ACCEPTS PT FOR ADMIT 2054--SPOKE WITH DR. SHELDON FOR CARDIOLOGY CONSULT Impression Primary Impression: Elevated troponin Additional Impressions: CHF (congestive heart failure) Falls History of CVA (cerebrovascular accident) Dementia Weakness generalized Disposition: ADMITTED INPATIENT Condition: Stable Admissions Decision to Admit Reason: Admit from ER (General) Decision to Admit/Date: Oct 29, 2021 Time/Decision to Admit Time: 20:50 Departure-Patient Inst. Referrals: GEOVANNA CHASE DO (PCP/Family) Primary Care Physician ENEDINA LIZARRAGA DO Oct 29, 2021 19:51
[2021-10-29 19:55] LABS: BASOPHILS % (AUTO) 0 % (0-10); EOSINOPHILS # (AUTO) 0.1 10^3/uL (0.0-0.3); EOSINOPHILS % (AUTO) 1 % (0-10); HEMATOCRIT 48 % (40-54); HEMOGLOBIN 15.8 g/dL (13.3-17.7); LYMPHOCYTES # (AUTO) 0.7 10^3/uL (1.0-4.0); LYMPHOCYTES % (AUTO) 9 % (12-44); MEAN CORPUSCULAR HEMOGLOBIN 32 pg (25-34); MEAN CORPUSCULAR HGB CONC 33 g/dL (32-36); MEAN CORPUSCULAR VOLUME 96 fL (80-99); MEAN PLATELET VOLUME 11.3 fL (9.0-12.2); MONOCYTES # (AUTO) 1.2 10^3/uL (0.0-1.0); MONOCYTES % (AUTO) 16 % (0-12); NEUTROPHILS # (AUTO) 5.8 10^3/uL (1.8-7.8); NEUTROPHILS % (AUTO) 74 % (42-75); PLATELET COUNT 203 10^3/uL (130-400); WHITE BLOOD COUNT 7.9 10^3/uL (4.3-11.0)
[2021-10-29 20:08] LABS: PROTHROMBIN TIME PATIENT 13.5 SEC (12.2-14.7)
[2021-10-29 20:12] LABS: ALBUMIN 3.8 GM/DL (3.2-4.5); BILIRUBIN,TOTAL 0.7 MG/DL (0.1-1.0); CALCIUM 10.2 MG/DL (8.5-10.1); CREATININE SERUM 1.56 MG/DL (0.60-1.30); MAGNESIUM 2.4 MG/DL (1.6-2.4); POTASSIUM 3.6 MMOL/L (3.6-5.0)
[2021-10-29 20:19] LABS: AMORPHOUS SEDIMENT,UR LARGE AMOR URATES /LPF; BACTERIA,URINE TRACE /HPF; RBC,URINE 0-2 /HPF; WBC,URINE RARE /HPF
[2021-10-29 20:25] LABS: ERYTHROCYTE SEDIMENTATION RATE 6 MM/HR (0-30)
[2021-10-29 20:34] LABS: TSH (THYROID ANALYZER) 2.16 UIU/ML (0.35-4.94)
--- NOTE | 2021-10-29 20:37 | Diagnostic Imaging Report ---
Clinical indications: Patient status post trauma. Altered mental status. Possible fall. Exam: Head CT without IV contrast with sagittal and coronal reformations. Axial CT scan of the cervical spine with sagittal and coronal reformations. Auto Exposure Controls were utilized during the CT exam to meet ALARA standards for radiation dose reduction. Comparison: None. Findings: Head CT: There is no evidence of acute cerebral infarct, intracranial hemorrhage, or gross mass effect. 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 There is brain parenchymal volume loss. There is a small chronic infarct involving left thalamus. There are small chronic infarct involving the right cerebellum. There is chronic small vessel ischemic disease involving both cerebral hemispheres. There is no hydrocephalus, brain herniation or midline shift. There is no intracranial hemorrhage. Basal cisterns are unremarkable. Right-sided yessy hole craniotomies are noted. There is no skull fracture. Otherwise, the extracranial soft tissues, skull, and orbits are unremarkable. There is mild mucosal thickening involving both maxillary sinuses and mild to moderate mucosal thickening involving ethmoid sinus. Mastoid air cells are clear. Cervical spine: There is no acute cervical spine fracture or dislocation. There are hypertrophic spurs and facet arthropathy throughout cervical spine. The neck soft tissue structures are unremarkable. Visualized upper lung cummins are clear. Impression: 1: There is no evidence of acute intracranial process. There is no intracranial hemorrhage or skull fracture. 2: Cervical spine degenerative disease with no acute fracture or dislocation. 3: There is small chronic infarct involving the left thalamus and right cerebellum. Dictated by: Dictated on workstation # [id number]
--- NOTE | 2021-10-29 20:37 | Diagnostic Imaging Report ---
CLINICAL INDICATIONS: Patient with altered mental status. EXAM: Portable chest x-ray supine view. COMPARISON: 11/13/2019 FINDINGS: Lungs/pleura: The left costophrenic angle region is obscured and cannot be completely evaluated. There is mild amorphous airspace opacities involving both lung bases left side more the right. The remainder of the lungs are clear. There is no pneumothorax. There is no pleural effusion. Mediastinum: Unremarkable. Pulmonary vasculature: There is mild pulmonary vascular congestion which is most pronounced centrally.. Heart: There is cardiomegaly which has increased in interim.. Bones/extrathoracic soft tissue: There are hypertrophic spurs involving the thoracic spine. IMPRESSION: 1: There is cardiomegaly with mild pulmonary vascular congestion which is most pronounced centrally. 2: There is mild bibasilar atelectasis versus infiltrate. 3: Left costophrenic angle region is incompletely imaged and cannot be evaluated. Dictated by: Dictated on workstation # [id number]
[2021-10-29 20:39] LABS: CREATINE KINASE MB 7.1 NG/ML (<6.6)
--- NOTE | 2021-10-29 20:42 | Diagnostic Imaging Report ---
CLINICAL INDICATIONS: Patient with altered mental status and pain. EXAM: X-ray pelvis AP view. COMPARISON: CT scan of the abdomen and pelvis without contrast dated 12/29/2020. FINDINGS: Of note, the lateral aspect of the right greater trochanter is not completely imaged. There is no fracture or dislocation of the pelvis, hips, sacrum, or lower lumbar spine, as visualized. There are hypertrophic spurs involving the lower lumbar spine. Bowel gas obscures portions of the sacrum. There is spurring of the symphysis pubis region. There are small spurs involving the acetabular regions and right femoral head/neck junction region. IMPRESSION: There is no acute fracture or dislocation, as visualized. Dictated by: Dictated on workstation # [id number]
[2021-10-29] MEDS ORDERED: FUROSEMIDE 40 MG/4 ML INJ (LASIX) IVP ONE (21:15)
[2021-10-29 22:00] VITALS: BP 161/80
[2021-10-29] MEDS ORDERED: morphine INJ 4 MG/ML 1 ML (VIAL/SYRINGE) IV PRN (22:15)
[2021-10-29] MEDS ORDERED: ONDANSETRON 4 MG/2 ML (SDV) Z0FRAN IVP PRN (22:15)
[2021-10-29] MEDS ORDERED: NITROGLYCERIN 0.4 MG SL TABS BTL 25'S SL PRN (22:15)
[2021-10-29] MEDS ORDERED: CATHETER FLUSH 10 ML SYR IV PRN (22:30)
[2021-10-30 00:16] VITALS: BP 153/72
[2021-10-30 04:00] VITALS: BP 155/66
[2021-10-30 06:12] LABS: BASOPHILS % (AUTO) 0 % (0-10); EOSINOPHILS # (AUTO) 0.1 10^3/uL (0.0-0.3); EOSINOPHILS % (AUTO) 2 % (0-10); HEMATOCRIT 50 % (40-54); HEMOGLOBIN 16.7 g/dL (13.3-17.7); LYMPHOCYTES # (AUTO) 0.8 10^3/uL (1.0-4.0); LYMPHOCYTES % (AUTO) 13 % (12-44); MEAN CORPUSCULAR HEMOGLOBIN 32 pg (25-34); MEAN CORPUSCULAR HGB CONC 33 g/dL (32-36); MEAN CORPUSCULAR VOLUME 95 fL (80-99); MEAN PLATELET VOLUME 11.4 fL (9.0-12.2); MONOCYTES # (AUTO) 1.3 10^3/uL (0.0-1.0); MONOCYTES % (AUTO) 20 % (0-12); NEUTROPHILS # (AUTO) 4.2 10^3/uL (1.8-7.8); NEUTROPHILS % (AUTO) 65 % (42-75); PLATELET COUNT 195 10^3/uL (130-400); WHITE BLOOD COUNT 6.4 10^3/uL (4.3-11.0)
[2021-10-30 06:26] LABS: TRIGLYCERIDES 109 MG/DL (<150); VLDL CHOLESTEROL 22 MG/DL (5-40)
[2021-10-30 06:31] LABS: CHOLESTEROL 181 MG/DL (< 200); HDL CHOLESTEROL 39 MG/DL (40-60)
[2021-10-30 06:58] LABS: BAND NEUTROPHILS 1 %; BASOPHILS % (MANUAL) 1 %; LYMPHOCYTES % (MANUAL) 12 %; MONOCYTES % (MANUAL) 19 %; NEUTROPHILS % (MANUAL) 67 %; RBC MORPH NORMAL
[2021-10-30 08:00] VITALS: BP 165/66
[2021-10-30] MEDS: ASPIRIN E.C. 81 MG (ECOTRIN) TAB PO SCH (09:04)
[2021-10-30] MEDS: CATHETER FLUSH 10 ML SYR IV SCH ×3 (09:04→21:58)
[2021-10-30] MEDS ORDERED: SIMV20TA26 PO (09:52)
[2021-10-30] MEDS ORDERED: MULT-1136 PO (09:52)
[2021-10-30] MEDS ORDERED: METO50TA15 PO (09:52)
[2021-10-30] MEDS ORDERED: DOCU250C11 PO (09:52)
[2021-10-30] MEDS ORDERED: HYDR12.56 PO (09:52)
[2021-10-30] MEDS ORDERED: BUPR150T24 PO (09:52)
[2021-10-30] MEDS ORDERED: DOCU100C37 PO (09:52)
[2021-10-30] MEDS ORDERED: ACET-2267 PO (09:52)
[2021-10-30] MEDS ORDERED: FAMO20TA3 PO (09:52)
[2021-10-30] MEDS ORDERED: AMLO-250 PO (09:52)
[2021-10-30] MEDS ORDERED: CLN.1T PO (09:52)
[2021-10-30] MEDS ORDERED: MICO130A6 TP (09:52)
--- NOTE | 2021-10-30 11:37 | History & Physical ---
History of Present Illness History of Present Illness Reason for visit/HPI This is an 86 year old male who is a resident at [facility] who was brought to the emergency room due to 4 falls yesterday. The reports she noticed he had been weaker the last 2 days. He was found to be hypoxic requiring 2 liters of oxygen as well as to have an elevated troponin-I with elevated CK-MB, myoglobin and BNP. His CXR showed mild pulmonary vascular congestion. He was given IV lasix 40mg and will be admitted for further evaluation by cardiology. He has a history of intolerance to blood thinners including aspirin due to hematuria. He also has a history of aortic valve regurgitation but has not had a recent updated ECHO per his . Date of Admission Oct 29, 2021 at 21:00 Date Seen by a Provider: Oct 30, 2021 Time Seen by a Provider: 11:32 I consulted on this patient on 10/30/21 11:31 Attending Physician Geovanna Galeano DO Admitting Physician Geovanna Galeano DO Consult Allergies and Home Medications Allergies Coded Allergies: [place] Known Allergies (Verified Allergy, Unknown, 02/04/06) Patient Home Medication List Home Medication List Reviewed: Yes Acetaminophen (Tylenol Extra Strength) 500 Mg Tablet, 1,000 MG PO Q8H PRN for PAIN-MILD (1-4), (Reported) Entered as Reported by: FLORENCE MITCHELL on 10/30/21951 Last Action: Reviewed Amlodipine Besylate (Amlodipine Besylate) 5 Mg Tablet, 5 MG PO DAILY, (Reported) Entered as Reported by: FLORENCE MITCHELL on 10/30/21951 Last Action: Continued Bupropion HCl (Bupropion Xl) 150 Mg Tab.er.24h, 150 MG PO DAILY, (Reported) Entered as Reported by: FLORENCE MITCHELL on 10/30/21951 Last Action: Converted Clonidine HCl (Clonidine HCl) 0.1 Mg Tablet, 0.1 MG PO TID PRN for BP OVER 160/90, (Reported) Entered as Reported by: FLORENCE MITCHELL on 10/30/21951 Last Action: Reviewed Docusate Sodium (Docusate Sodium) 250 Mg Capsule, 250 MG PO HS PRN for CONSTIPATION-1ST LINE, (Reported) Entered as Reported by: FLORENCE MITCHELL on 10/30/21951 Last Action: Held Docusate Sodium (Docusate Sodium) 100 Mg Capsule, 100 MG PO DAILY, (Reported) Entered as Reported by: FLORENCE MITCHELL on 10/30/21951 Last Action: Continued Famotidine (Acid Packaging Manager (FAMOTIDINE)) 20 Mg Tablet, 20 MG PO HS, (Reported) Entered as Reported by: FLORENCE MITCHELL on 10/30/21951 Last Action: Continued Hydrochlorothiazide (Hydrochlorothiazide) 12.5 Mg Tablet, 12.5 MG PO DAILY, (Reported) Entered as Reported by: FLORENCE MITCHELL on 10/30/21951 Last Action: Held Metoprolol Tartrate (Metoprolol Tartrate) 50 Mg Tablet, 50 MG PO BID, (Reported) Entered as Reported by: FLORENCE MITCHELL on 10/30/21951 Last Action: Continued Miconazole Nitrate (Miconazole Nitrate) 130 Gm Aero.powd, 1 APPLIC TP BID, (Reported) Entered as Reported by: FLORENCE MITCHELL on 10/30/21951 Last Action: Held Multivitamin (Multivitamin) 1 Each Tablet, 1 EACH PO DAILY, (Reported) Entered as Reported by: FLORENCE MITCHELL on 10/30/21951 Last Action: Converted Simvastatin (Simvastatin) 20 Mg Tablet, 20 MG PO DAILY, (Reported) Entered as Reported by: FLORENCE MITCHELL on 10/30/21951 Last Action: Continued Discontinued Medications Albuterol Sulfate (Proair Hfa) 1 Puff Puff, 2 PUFF IH Q4H PRN for WHEEZING Discontinued Reason: No Longer Taking Prescribed by: WARNER MCCONNELL on 11/13/19 1531 Last Action: Discontinued Aspirin (Aspirin Ec 81 Mg) 81 Mg Tabec, 81 MG PO DAILY, (Reported) Discontinued Reason: No Longer Taking Entered as Reported by: MONROE YAN on 11/30/11 1208 Last Action: Discontinued Azithromycin (Azithromycin) 250 Mg Tablet, 250 MG PO UD Discontinued Reason: No Longer Taking Prescribed by: WARNER MCCONNELL on 11/13/19 1531 Last Action: Discontinued Cephalexin (Keflex) 500 Mg Capsule, 500 MG PO QID, (Reported) Discontinued Reason: No Longer Taking Entered as Reported by: HUI CHANG on 11/22/19 1435 Last Action: Discontinued Docusate Sodium (Stool Softener) 100 Mg Tablet, 100 MG PO PRN, (Reported) Discontinued Reason: No Longer Taking Entered as Reported by: MONROE YAN on 11/30/111207 Last Action: Discontinued Ferrous Sulfate (Iron) 325 Mg Tablet, 1 TAB PO DAILY, (Reported) Discontinued Reason: No Longer Taking Entered as Reported by: MONROE YAN on 11/30/111207 Last Action: Discontinued Hydrocodone Bit/Acetaminophen (Hydrocodon-Acetaminophn 10-325) 1 Each Tablet, 1 EACH PO, (Reported) Discontinued Reason: No Longer Taking Entered as Reported by: INDIRA HAZEL on 04/21/11 102 Last Action: Discontinued Lisinopril (Zestril) 10 Mg Tablet, 1 EACH PO DAILY, (Reported) Discontinued Reason: No Longer Taking Entered as Reported by: INDIRA HAZEL on 04/21/11 102 Last Action: Discontinued Metoprolol Succinate (Metoprolol Succinate Xl 50 Mg) 50 Mg Tab.sr.24h, 1 EACH PO DAILY, (Reported) Discontinued Reason: No Longer Taking Entered as Reported by: MONROE YAN on 11/30/111207 Last Action: Discontinued Multivitamins (Multiple Vitamin) 1 Tab Tablet, 1 TAB PO, (Reported) Discontinued Reason: No Longer Taking Entered as Reported by: INDIRA HAZEL on 04/21/11 102 Last Action: Discontinued Pantoprazole Sod (Protonix Tab) 40 Mg Tab, 40 MG PO, (Reported) Discontinued Reason: No Longer Taking Entered as Reported by: INDIRA HAZEL on 04/21/11 102 Last Action: Discontinued Rosuvastatin Calcium (Crestor) 20 Mg Tablet, 1 EACH PO DAILY, (Reported) Discontinued Reason: No Longer Taking Entered as Reported by: MONROE YAN on 11/30/111207 Last Action: Discontinued Past Xtgsvor-[id number] Hx Patient Social History Marrital Status: Employed/Student: retired Tobacco Use?: No Use of E-Cig and/or Vaping dev: No Substance use?: No Alcohol Use?: No Pt feels they are or have been: No Immunizations Up To Date First/Initial COVID19 Vaccinat: 2020 Current Status Communicates: Verbally Primary Language: [place] Preferred Spoken Language: [place]se Is interpretation needed?: No Sensory deficits: Hearing impairment Past Medical History Surgeries: Joint Replacement, Orthopedic, Renal Atrial Fibrillation, High Cholesterol, Hypertension, Valvular Heart Disease Dementia, Stroke, Traumatic Brain Injury Benign Prostatic Hyperpl, Prostate Problems Gastroesophageal Reflux Arthritis Hearing Impairment: Hard of Hearing Depression Blood Disorders: No Review of Systems Constitutional: malaise, weakness EENTM: No see HPI, No no symptoms reported, No ear discharge, No hearing loss, No ear pain, No blurred vision, No double vision, No eye pain, No tearing, No vision loss, No dental problems, No hoarseness, No mouth pain, No mouth swelling, No epistaxis, No nose congestion, No nose pain, No throat pain, No throat swelling, No other Respiratory: cough, short of breath Cardiovascular: No no symptoms reported, No see HPI, No chest pain, No edema, No Hx of Intervention, No palpitations, No syncope, No vascular heart diseas, No other Gastrointestinal: No RUQ, No LUQ, No RLQ, No LLQ, No no symptoms reported, No see HPI, No abdominal pain, No constipation, No diarrhea, No dysphagia, No hematemesis, No heartburn, No jaundice, No loss of appetite, No melena, No nausea, No vomiting, No other Genitourinary: No no symptoms reported, No see HPI, No decreased output, No discharge, No dysuria, No frequency, No hematuria, No hesitancy, No incontinence, No nocturia, No pain, No other Musculoskeletal: muscle weakness Skin: No no symptoms reported, No see HPI, No change in color, No change in hair/nails, No dryness, No hx of skin cancer, No lesions, No lumps, No pruritus, No rash, No other Psychiatric/Neurological: Weakness Physical Exam Vital Signs Vital Signs - First Documented 10/29/21 10/29/21 19:28 21:00 Temp 36.2 Pulse 68 Resp 19 B/P (MAP) 153/74 (100) Pulse Ox 94 O2 Delivery Room Air O2 Flow Rate 2.00 Capillary Refill : Less Than 3 Seconds Height, Weight, BMI Height: 6'0.00" Weight: 207lbs. oz. 93.573796cc; 27.00 BMI Method: General Appearance: Mild Distress (increased respiratory effort) HEENT: Normal ENT Inspection Neck: Supple Respiratory: Lungs Clear, Decreased Breath Sounds Cardiovascular: Regular Rate, Rhythm, Systolic Murmur Gastrointestinal: Normal Bowel Sounds, Non Tender, Soft Rectal: Deferred Back: No CVA Tenderness Extremity: Non Tender, No Calf Tenderness, No Pedal Edema Neurologic/Psychiatric: Alert, Oriented x3 Skin: Warm/Dry Comments Laboratory Tests 10/29/21 19:35: White Blood Count 7.9, Red Blood Count 5.01, Hemoglobin 15.8, Hematocrit 48, Mean Corpuscular Volume 96, Mean Corpuscular Hemoglobin 32, Mean Corpuscular Hemoglobin Concent 33, Red Cell Distribution Width 14.5, Platelet Count 203, Mean Platelet Volume 11.3, Immature Granulocyte % (Auto) 0, Neutrophils (%) (Au to) 74, Lymphocytes (%) (Auto) 9L, Monocytes (%) (Auto) 16H, Eosinophils (%) (Auto) 1, Basophils (%) (Auto) 0, Neutrophils # (Auto) 5.8, Lymphocytes # (Auto) 0.7L, Monocytes # (Auto) 1.2H, Eosinophils # (Auto) 0.1, Basophils # (Auto) 0.0, Immature Granulocyte # (Auto) 0.0, Erythrocyte Sedimentation Rate 6, Prothrombin Time 13.5, INR Comment 1.0, Activated Partial Thromboplast Time 28, Sodium Level 144, Potassium Level 3.6, Chloride Level 107, Carbon Dioxide Level 23, Anion Gap 14, Blood Urea Nitrogen 41H, Creatinine 1.56H, Estimat Glomerular Filtration Rate 43, BUN/Creatinine Ratio 26, Glucose Level 125H, Lactic Acid Level 1.98, Calcium Level 10.2H, Corrected Calcium 10.4H, Magnesium Level 2.4, Total Bilirubin 0.7, Aspartate Amino Transf (AST/SGOT) 29, Alanine Aminotransferase (ALT/SGPT) 24, Alkaline Phosphatase 78, Total Creatine Kinase 491H, Creatine Kinase MB 7.1*H, Myoglobin 855.4H, Troponin I 0.037H, C-Reactive Protein High Sensitivity 3.36H, B-Type Natriuretic Peptide 291.5H, Total Protein 7.0, Albumin 3.8, Lipase 13, Procalcitonin 0.10H, TSH [place] Testing 2.16 10/29/21 19:36: Glucometer 125H 10/29/21 19:44: Urine Color YELLOW, Urine Clarity CLEAR, Urine pH 5.5, Urine Specific [place] 1.020, Urine Protein 1+H, Urine Glucose (UA) 2+H, Urine Ketones NEGATIVE, Urine Nitrite NEGATIVE, Urine Bilirubin NEGATIVE, Urine Urobilinogen 0.2, Urine Leukocyte Esterase NEGATIVE, Urine RBC (Auto) 2+H, Urine RBC 0-2, Urine WBC RARE, Urine Crystals PRESENTH, Urine Amorphous Sediment LARGE SAL URATESH, Urine Bacteria TRACE, Urine Casts NONE, Urine Mucus NEGATIVE, Urine Culture Indicated NO 10/29/21 21:29: Coronavirus (COVID-19)(PCR) [Pending], Influenza Type A Antigen NEGATIVE, Influenza Type B Antigen NEGATIVE 10/29/21 22:53: Troponin I 0.045H 10/30/21 05:34: White Blood Count 6.4, Red Blood Count 5.26, Hemoglobin 16.7, Hematocrit 50, Mean Corpuscular Volume 95, Mean Corpuscular Hemoglobin 32, Mean Corpuscular Hemoglobin Concent 33, Red Cell Distribution Width 14.4, Platelet Count 195, Mean Platelet Volume 11.4, Immature Granulocyte % (Auto) 0, Neutrophils (%) (Auto) 65, Lymphocytes (%) (Auto) 13, Monocytes (%) (Auto) 20H, Eosinophils (%) (Auto) 2, Basophils (%) (Auto) 0, Neutrophils # (Auto) 4.2, Lymphocytes # (Auto) 0.8L, Monocytes # (Auto) 1.3H, Eosinophils # (Auto) 0.1, Basophils # (Auto) 0.0, Immature Granulocyte # (Auto) 0.0, Neutrophils % (Manual) 67, Lymphocytes % (Manual) 12, Monocytes % (Manual) 19, Basophils % (Manual) 1, Band Neutrophils 1, Blood Morphology Comment NORMAL, B-Type Natriuretic Peptide 184.3H, Triglycerides Level 109, Cholesterol Level 181, LDL Cholesterol Direct 131H, VLDL Cholesterol 22, HDL Cholesterol 39L Assessment/Plan Assessment and Plan 1. Elevated Troponin-I, CK-MB and myoglobin--likely acute ME, will await cardiology evaluation, ECHO done this morning, discussed further workup including chemical stress test or cardiac cath but patient is a complex management due to his history of not tolerating blood thinners, aspirin 81mg daily started and will do SCDs for DVT prophylaxis 2. Acute Congestive Heart Failure--await ECHO results, given one dose of IV lasix in ER and BNP down today 3. Acute Hypoxia due to pulmonary vascular congestion and atelectesis--on oxygen at 2L NC, add IS, repeat CXR in AM 4. Acute on Chronic Renal Insufficiency--will give a 500cc bolus of LR and repeat labs in AM 5. Hypertension--restart metoprolol and amlodopine 6. GERD--restart famotodine 7. Generalized Weakness--patient is generally wheel chair bound Admission Diagnosis Admission Status: Inpatient Order (span 2 midnights) Reason for Inpatient Admission: Will need oxygen and cardiac evaluation with further workup for elevated troponin-I GEOVANNA GALEANO DO Oct 30, 2021 11:37
[2021-10-30] MEDS ORDERED: LACTATED RINGERS 1,000 ML IV ONE (11:45)
[2021-10-30 12:00] VITALS: BP 135/62
--- NOTE | 2021-10-30 12:15 | Consultation-Cardiology ---
HPI-Cardiology Cardiology Consultation Date of Consultation 10/30/21 Date of Admission Time Seen by Provider: 11:32 Indication: Generalized weakness HPI 86-year-old gentleman resident of [facility] brought to the emergency room secondary to multiple falls and generalized weakness. Patient has been having progressive weakness and lethargy. He was found to be hypoxic requiring 2 L of oxygen and noted to have mild elevation in troponin. Denied any chest pain. No syncope. Home Medications & Allergies Allergies: Coded Allergies: NKANo Known Allergies (Verified Allergy, Unknown, 02/04/06) Home Medication List Reviewed: Yes KGR-Nrrdym-Toylua Hx Patient Social History Marital Status: Employed/Student: retired Type Used: Smokeless Tobacco Recent Hopitalizations: Yes (RENAL CA, PROSTATE CA, SKIN CA) Have you traveled recently?: No Alcohol Use?: No Past Medical History Discussed with Family Medical History Family Medical Hx Noncontributory Review of Systems-General Review of Systems Constitutional: see HPI, malaise, weakness EENTM: see HPI; No no symptoms reported, No ear discharge, No hearing loss, No ear pain, No blurred vision, No double vision, No eye pain, No tearing, No vision loss, No dental problems, No hoarseness, No mouth pain, No mouth swelling, No epistaxis, No nose congestion, No nose pain, No throat pain, No throat swelling, No other Respiratory: see HPI, cough, short of breath Cardiovascular: No no symptoms reported; see HPI; No chest pain, No edema, No Hx of Intervention, No palpitations, No syncope, No vascular heart diseas, No other Gastrointestinal: No RUQ, No LUQ, No RLQ, No LLQ, No no symptoms reported; see HPI; No abdominal pain, No constipation, No diarrhea, No dysphagia, No hematemesis, No heartburn, No jaundice, No loss of appetite, No melena, No nausea, No vomiting, No other Genitourinary: No no symptoms reported, No see HPI, No decreased output, No discharge, No dysuria, No frequency, No hematuria, No hesitancy, No incontinence , No nocturia, No pain, No other Musculoskeletal: muscle weakness Skin: No no symptoms reported; see HPI; No change in color, No change in hair/nails, No dryness, No hx of skin cancer, No lesions, No lumps, No pruritus, No rash, No other Psychiatric/Neurological: See HPI, Weakness Reviewed Test Results Reviewed Test Results Lab Laboratory Tests Test 10/29/21 19:35 10/29/21 19:36 10/29/21 19:44 10/29/21 21:29 Range/Units White Blood Count 7.9 4.3-11.0 10^3/uL Red Blood Count 5.01 4.30-5.52 10^6/uL Hemoglobin 15.8 13.3-17.7 g/dL Hematocrit 48 40-54 % Mean Corpuscular Volume 96 80-99 fL Mean Corpuscular Hemoglobin 32 25-34 pg Mean Corpuscular Hemoglobin Concent 33 32-36 g/dL Red Cell Distribution Width 14.5 10.0-14.5 % Platelet Count 203 130-400 10^3/uL Mean Platelet Volume 11.3 9.0-12.2 fL Immature Granulocyte % (Auto) 0 % Neutrophils (%) (Auto) 74 42-75 % Lymphocytes (%) (Auto) 9 L 12-44 % Monocytes (%) (Auto) 16 H 0-12 % Eosinophils (%) (Auto) 1 0-10 % Basophils (%) (Auto) 0 0-10 % Neutrophils # (Auto) 5.8 1.8-7.8 10^3/uL Lymphocytes # (Auto) 0.7 L 1.0-4.0 10^3/uL Monocytes # (Auto) 1.2 H 0.0-1.0 10^3/uL Eosinophils # (Auto) 0.1 0.0-0.3 10^3/uL Basophils # (Auto) 0.0 0.0-0.1 10^3/uL Immature Granulocyte # (Auto) 0.0 0.0-0.1 10^3/uL Erythrocyte Sedimentation Rate 6 0-30 MM/HR Prothrombin Time 13.5 12.2-14.7 SEC INR Comment 1.0 0.8-1.4 Activated Partial Thromboplast Time 28 24-35 SEC Sodium Level 144 135-145 MMOL/L Potassium Level 3.6 3.6-5.0 MMOL/L Chloride Level 107 98-107 MMOL/L Carbon Dioxide Level 23 21-32 MMOL/L Anion Gap 14 5-14 MMOL/L Blood Urea Nitrogen 41 H 7-18 MG/DL Creatinine 1.56 H 0.60-1.30 MG/DL Estimat Glomerular Filtration Rate 43 BUN/Creatinine Ratio 26 Glucose Level 125 H 70-105 MG/DL Lactic Acid Level 1.98 0.50-2.00 MMOL/L Calcium Level 10.2 H 8.5-10.1 MG/DL Corrected Calcium 10.4 H 8.5-10.1 MG/DL Magnesium Level 2.4 1.6-2.4 MG/DL Total Bilirubin 0.7 0.1-1.0 MG/DL Aspartate Amino Transf (AST/SGOT) 29 5-34 U/L Alanine Aminotransferase (ALT/SGPT) 24 0-55 U/L Alkaline Phosphatase 78 40-136 U/L Total Creatine Kinase 491 H 30-200 U/L Creatine Kinase MB 7.1 *H <6.6 NG/ML Myoglobin 855.4 H 10.0-92.0 NG/ML Troponin I 0.037 H <0.028 NG/ML C-Reactive Protein High Sensitivity 3.36 H 0.00-0.50 MG/DL B-Type Natriuretic Peptide 291.5 H <100.0 PG/ML Total Protein 7.0 6.4-8.2 GM/DL Albumin 3.8 3.2-4.5 GM/DL Lipase 13 8-78 U/L Procalcitonin 0.10 H <0.10 NG/ML TSH [place] Testing 2.16 0.35-4.94 UIU/ML Glucometer 125 H 70-110 MG/DL Urine Color YELLOW Urine Clarity CLEAR Urine pH 5.5 5-9 Urine Specific [place] 1.020 1.016-1.022 Urine Protein 1+ H NEGATIVE Urine Glucose (UA) 2+ H NEGATIVE Urine Ketones NEGATIVE NEGATIVE Urine Nitrite NEGATIVE NEGATIVE Urine Bilirubin NEGATIVE NEGATIVE Urine Urobilinogen 0.2 < = 1.0 MG/DL Urine Leukocyte Esterase NEGATIVE NEGATIVE Urine RBC (Auto) 2+ H NEGATIVE Urine RBC 0-2 /HPF Urine WBC RARE /HPF Urine Crystals PRESENT H /LPF Urine Amorphous Sediment LARGE SAL URATES H /LPF Urine Bacteria TRACE /HPF Urine Casts NONE /LPF Urine Mucus NEGATIVE /LPF Urine Culture Indicated NO Influenza Type A Antigen NEGATIVE NEGATIVE Influenza Type B Antigen NEGATIVE NEGATIVE Test 10/29/21 22:53 10/30/21 05:34 Range/Units Troponin I 0.045 H <0.028 NG/ML White Blood Count 6.4 4.3-11.0 10^3/uL Red Blood Count 5.26 4.30-5.52 10^6/uL Hemoglobin 16.7 13.3-17.7 g/dL Hematocrit 50 40-54 % Mean Corpuscular Volume 95 80-99 fL Mean Corpuscular Hemoglobin 32 25-34 pg Mean Corpuscular Hemoglobin Concent 33 32-36 g/dL Red Cell Distribution Width 14.4 10.0-14.5 % Platelet Count 195 130-400 10^3/uL Mean Platelet Volume 11.4 9.0-12.2 fL Immature Granulocyte % (Auto) 0 % Neutrophils (%) (Auto) 65 42-75 % Lymphocytes (%) (Auto) 13 12-44 % Monocytes (%) (Auto) 20 H 0-12 % Eosinophils (%) (Auto) 2 0-10 % Basophils (%) (Auto) 0 0-10 % Neutrophils # (Auto) 4.2 1.8-7.8 10^3/uL Lymphocytes # (Auto) 0.8 L 1.0-4.0 10^3/uL Monocytes # (Auto) 1.3 H 0.0-1.0 10^3/uL Eosinophils # (Auto) 0.1 0.0-0.3 10^3/uL Basophils # (Auto) 0.0 0.0-0.1 10^3/uL Immature Granulocyte # (Auto) 0.0 0.0-0.1 10^3/uL Neutrophils % (Manual) 67 % Lymphocytes % (Manual) 12 % Monocytes % (Manual) 19 % Basophils % (Manual) 1 % Band Neutrophils 1 % Blood Morphology Comment NORMAL B-Type Natriuretic Peptide 184.3 H <100.0 PG/ML Triglycerides Level 109 <150 MG/DL Cholesterol Level 181 < 200 MG/DL LDL Cholesterol Direct 131 H 1-129 MG/DL VLDL Cholesterol 22 5-40 MG/DL HDL Cholesterol 39 L 40-60 MG/DL Physical Exam Physical Exam Vital Signs Vital Signs - First Documented 10/29/21 10/29/21 19:28 21:00 Temp 36.2 Pulse 68 Resp 19 B/P (MAP) 153/74 (100) Pulse Ox 94 O2 Delivery Room Air O2 Flow Rate 2.00 Capillary Refill : Less Than 3 Seconds Height, Weight, BMI Height: 6'0.00" Weight: 207lbs. oz. 93.228026ks; 27.00 BMI Method: General Appearance: Mild Distress (increased respiratory effort) Eyes: Bilateral Eye Normal Inspection, Bilateral Eye PERRL, Bilateral Eye EOMI HEENT: Normal ENT Inspection Neck: Supple Respiratory: Lungs Clear, Decreased Breath Sounds Cardiovascular: Regular Rate, Rhythm, No Murmur, Systolic Murmur Gastrointestinal: Normal Bowel Sounds, Non Tender, Soft Rectal: Deferred Back: No CVA Tenderness Extremity: Non Tender, No Calf Tenderness, No Pedal Edema Neurologic/Psychiatric: Alert, Oriented x3 Skin: Warm/Dry Lymphatic: No Adenopathy A/P-Cardiology Admission Diagnosis Type II myocardial infarction Congestive heart failure, acute on chronic left ventricular diastolic dysfunction Hypertension Acute renal insufficiency Assessment/Plan Mild elevation in troponin, EKG showing left bundle branch block. Probably type II myocardial infarction secondary to hypoxemia. Underlying coronary artery disease cannot be entirely excluded. Patient denied any chest pain. I recommend conservative management. Congestive heart failure, acute on chronic left ventricular diastolic dysfunction, normal systolic function, given Lasix and responding well. Hypoxemia with pulmonary edema secondary to congestive heart failure in addition to renal insufficiency. Received IV fluid and Lasix. Continue to monitor Acute on chronic renal insufficiency. Monitor renal function Hypertension, monitor blood pressure Gastroesophageal reflux disease Generalized weakness, patient is usually wheelchair bound. Managed by primary care physician JINNY SHELDON MD Oct 30, 2021 12:15
[2021-10-30 16:00] VITALS: BP 151/72
[2021-10-30 20:00] VITALS: BP 161/84
[2021-10-30] MEDS: meTOprolol TARTRATE 50 MG (LOPRESSOR) TAB PO SCH (21:58)
[2021-10-30] MEDS: FAMOTIDINE 20 MG (PEPCID) TABLET PO SCH (21:58)
[2021-10-31] VITALS (7 sets, daily range): BP systolic 123–176; BP diastolic 48–78
[2021-10-31 05:36] LABS: HEMATOCRIT 50 % (40-54); HEMOGLOBIN 16.5 g/dL (13.3-17.7); MEAN CORPUSCULAR HEMOGLOBIN 32 pg (25-34); MEAN CORPUSCULAR HGB CONC 33 g/dL (32-36); MEAN CORPUSCULAR VOLUME 96 fL (80-99); MEAN PLATELET VOLUME 11.5 fL (9.0-12.2); PLATELET COUNT 195 10^3/uL (130-400); WHITE BLOOD COUNT 7.1 10^3/uL (4.3-11.0)
[2021-10-31 06:04] LABS: POTASSIUM 3.7 MMOL/L (3.6-5.0)
[2021-10-31 06:06] LABS: CALCIUM 9.9 MG/DL (8.5-10.1)
[2021-10-31 06:10] LABS: CREATININE SERUM 1.23 MG/DL (0.60-1.30)
[2021-10-31] MEDS: CATHETER FLUSH 10 ML SYR IV SCH ×3 (06:24→20:39)
[2021-10-31] MEDS: MULTIVIT W/MINERALS TAB (THERAGRAN M) PO SCH (06:25)
[2021-10-31] MEDS: buPROPion SR 150 MG (WELLBUTRIN SR) TAB PO SCH (09:29)
[2021-10-31] MEDS: DOCUSATE SODIUM 100 MG (COLACE) CAP PO SCH (09:30)
[2021-10-31] MEDS: meTOprolol TARTRATE 50 MG (LOPRESSOR) TAB PO SCH ×2 (09:30→20:38)
[2021-10-31] MEDS: amLODIPine 5 MG (NORVASC) TAB PO SCH (09:30)
[2021-10-31] MEDS: SIMvastatin 20 MG (ZOCOR) TAB PO SCH (09:30)
[2021-10-31] MEDS: ASPIRIN E.C. 81 MG (ECOTRIN) TAB PO SCH (09:30)
[2021-10-31] MEDS ORDERED: meTOproloL SUCCINATE 50 MG (TOPROL XL) TAB PO ONE (11:00)
--- NOTE | 2021-10-31 12:23 | Cardiology Progress Note ---
Subjective Date Seen by Provider: Oct 31, 2021 Time Seen by Provider: 12:21 Subjective/Events-last exam Patient is laying down in bed, did not report any chest pain or change in condition I did not examine the patient, I visited with the nurse and reviewed his records and labs Focused Exam Lactate Level 10/29/21 19:35: Lactic Acid Level 1.98 Objective-Cardiology Exam Last Set of Vital Signs Vital Signs 10/31/21 10/31/21 03:42 07:47 Temp 36.4 Pulse 56 Resp 24 B/P (MAP) 148/64 (92) Pulse Ox 93 O2 Delivery Nasal Cannula O2 Flow Rate 2.00 I&O Intake and Output0 10/31/21 00:00 Intake Total 1600 ml Output Total 200 ml Balance 1400 ml Intake Oral 1600 ml Output Urine Total 200 ml # Voids 9 # Urine Diapers 1 General: Alert, Cooperative HEENT: Atraumatic, PERRLA Neck: Supple, No JVD Heart: Regular Rate Extremities: No Clubbing Neuro: Normal Speech Psych/Mental Status: Mental Status NL, Mood NL Results Lab Laboratory Tests 10/31/21 05:10 A/P-Cardiology Admission Diagnosis Type II myocardial infarction Congestive heart failure, acute on chronic left ventricular diastolic dysfunction Hypertension Acute renal insufficiency Assessment/Plan Mild elevation in troponin, EKG showing left bundle branch block. Probably type II myocardial infarction secondary to hypoxemia. Underlying coronary artery disease cannot be entirely excluded. Patient denied any chest pain. I recommend conservative management. Congestive heart failure, acute on chronic left ventricular diastolic dysf unction, normal systolic function, currently stable. Feeling better. Continue to monitor Hypoxemia secondary to COVID-19 pneumonia. Pulmonary edema. Managed by medical team Acute on chronic renal insufficiency. Monitor renal function Hypertension, monitor blood pressure Gastroesophageal reflux disease Generalized weakness, patient is usually wheelchair bound. Managed by primary care physician JINNY SHELDON MD Oct 31, 2021 12:23
[2021-10-31] MEDS ORDERED: ENOXAPARIN 40 MG/0.4 ML (LOVENOX) SYR SC SCH (17:45)
--- NOTE | 2021-10-31 17:48 | Progress Note - Hospitalist ---
Subjective HPI/CC On Admission Date Seen by Provider: Oct 31, 2021 Time Seen by Provider: 11:30 Subjective/Events-last exam He is not short of breath. He denies pain. He has no complaints or concerns. Focused Exam Lactate Level 10/29/21 19:35: Lactic Acid Level 1.98 Objective Exam Vital Signs Vital Signs Date Time Temp Pulse Resp B/P (MAP) Pulse Ox O2 Delivery O2 Flow Rate FiO2 10/31/21 16:08 36.0 61 18 125/69 (87) 92 Nasal Cannula 2.00 Capillary Refill : Less Than 3 Seconds General Appearance: No Apparent Distress, WD/WN Respiratory: Lungs Clear, No Respiratory Distress Cardiovascular: Regular Rate, Rhythm, No Murmur Gastrointestinal: Normal Bowel Sounds, Soft Extremity: Normal Inspection, Non Tender, Pedal Edema Neurologic/Psychiatric: Alert, Normal Mood/Affect Skin: Normal Color, Warm/Dry Results/Procedures Lab Laboratory Tests 10/31/21 05:10 Patient resulted labs reviewed. Imaging: Reviewed Imaging Report Assessment/Plan Assessment and Plan Assess & Plan/Chief Complaint Acute respiratory failure due to COVID-19 Chest xray with bilateral infiltrates Begin Decadron Supplemental oxygen as needed Repeat chest xray tomorrow Elevated troponin HFpEF Cardiology following Likely secondary to hypoxia ROMARIO on CKD Improved HTN GERD Dementia Continue home meds Debility Wheelchair bound at baseline DVT prophylaxis: Neema Diagnosis/Problems Diagnosis/Problems (1) Acute respiratory failure due to COVID-19 Status: Acute (2) Acute kidney injury superimposed on chronic kidney disease Status: Acute (3) Elevated troponin Status: Acute (4) Dementia Status: Chronic MARY NG MD Oct 31, 2021 17:48
[2021-10-31] MEDS ORDERED: ENOXAPARIN 40 MG/0.4 ML (LOVENOX) SYR ONE (18:46)
[2021-10-31] MEDS: ACETAMINOPHEN 325 MG TABLET PO PRN (20:38)
[2021-10-31] MEDS: FAMOTIDINE 20 MG (PEPCID) TABLET PO SCH (20:38)
[2021-10-31] MEDS: RT-ALBUTEROL HFA 8.5 GM INHALER IH PRN (22:07)
[2021-11-01] VITALS (7 sets, daily range): BP systolic 115–168; BP diastolic 43–79
[2021-11-01] MEDS: RT-ALBUTEROL HFA 8.5 GM INHALER IH PRN (00:13)
[2021-11-01] MEDS: dexAMETHasone 6 MG TAB (DECADRON) PO SCH (05:50)
[2021-11-01] MEDS: MULTIVIT W/MINERALS TAB (THERAGRAN M) PO SCH (05:50)
[2021-11-01] MEDS: CATHETER FLUSH 10 ML SYR IV SCH ×3 (05:51→22:53)
[2021-11-01 05:59] LABS: POTASSIUM 4.1 MMOL/L (3.6-5.0)
[2021-11-01 06:00] LABS: CALCIUM 9.6 MG/DL (8.5-10.1)
[2021-11-01 06:04] LABS: CREATININE SERUM 1.33 MG/DL (0.60-1.30)
--- NOTE | 2021-11-01 07:49 | Diagnostic Imaging Report ---
Portable erect AP chest at 657h. INDICATION: Respiratory distress, COVID The cardiomegaly, the mild central pulmonary congestion and the mild bibasilar atelectasis/infiltrate seen on the prior exam of 10/29/2021 are again evident and not significantly changed. No new abnormality has developed otherwise. The mediastinum is not widened. The osseous structures are intact. IMPRESSION: 1. Stable chest. There has been no significant change since the prior exam. Report was faxed to [facility] by carmela at 7:47am. Dictated by: Dictated on workstation # [id number]
[2021-11-01] MEDS: buPROPion SR 150 MG (WELLBUTRIN SR) TAB PO SCH (08:10)
[2021-11-01] MEDS: amLODIPine 5 MG (NORVASC) TAB PO SCH (08:10)
[2021-11-01] MEDS: SIMvastatin 20 MG (ZOCOR) TAB PO SCH (08:10)
[2021-11-01] MEDS: ASPIRIN E.C. 81 MG (ECOTRIN) TAB PO SCH (08:10)
[2021-11-01] MEDS: meTOprolol TARTRATE 50 MG (LOPRESSOR) TAB PO SCH ×2 (08:10→21:57)
[2021-11-01] MEDS: DOCUSATE SODIUM 100 MG (COLACE) CAP PO SCH (08:10)
[2021-11-01] MEDS: RT-ALBUTEROL HFA 8.5 GM INHALER IH SCH ×2 (08:11→21:35)
[2021-11-01] MEDS: ENOXAPARIN 40 MG/0.4 ML (LOVENOX) SYR SC SCH (18:01)
--- NOTE | 2021-11-01 18:47 | Progress Note - Hospitalist ---
Subjective HPI/CC On Admission Date Seen by Provider: Nov 01, 2021 Time Seen by Provider: 11:25 Subjective/Events-last exam He is sitting in his chair. He has no complaints. He denies pain. He denies trouble breathing. Focused Exam Lactate Level 10/29/21 19:35: Lactic Acid Level 1.98 Objective Exam Vital Signs Vital Signs Date Time Temp Pulse Resp B/P (MAP) Pulse Ox O2 Delivery O2 Flow Rate FiO2 11/01/21 15:21 36.6 66 18 147/70 (95) 94 Nasal Cannula 3.00 Capillary Refill : Less Than 3 Seconds General Appearance: No Apparent Distress, WD/WN Respiratory: Lungs Clear, Normal Breath Sounds, No Respiratory Distress Cardiovascular: Regular Rate, Rhythm, No Edema, No Murmur Gastrointestinal: Normal Bowel Sounds, Soft Extremity: Normal Inspection, No Pedal Edema Neurologic/Psychiatric: Alert, No Motor/Sensory Deficits, Normal Mood/Affect Skin: Normal Color, Warm/Dry Results/Procedures Lab Laboratory Tests 11/01/21 05:36 Patient resulted labs reviewed. Imaging: Reviewed Imaging Report Assessment/Plan Assessment and Plan Assess & Plan/Chief Complaint Acute respiratory failure due to COVID-19 Chest xray with bilateral infiltrates Continue Decadron Supplemental oxygen as needed Procal normal, no antibiotics Ddimer minimally elevated, prophylactic Lovenox Repeat chest xray stable Elevated troponin HFpEF Cardiology following Likely secondary to hypoxia CKD3a Appears to be near baseline HTN GERD Dementia Continue home meds Debility Wheelchair bound at baseline DVT prophylaxis: Lovenox ROMARIO on CKD, resolved Diagnosis/Problems Diagnosis/Problems (1) Acute respiratory failure due to COVID-19 Status: Acute (2) Acute kidney injury superimposed on chronic kidney disease Status: Resolved Resolution Date/Time: 11/01/21 @ 18:47 (3) Elevated troponin Status: Acute (4) Dementia Status: Chronic (5) Stage 3a chronic kidney disease Status: Chronic MARY NG MD Nov 01, 2021 18:47
[2021-11-01] MEDS: ACETAMINOPHEN 325 MG TABLET PO PRN (21:57)
[2021-11-01] MEDS: FAMOTIDINE 20 MG (PEPCID) TABLET PO SCH (21:57)
[2021-11-02 03:00] VITALS: BP 165/58
[2021-11-02] MEDS: dexAMETHasone 6 MG TAB (DECADRON) PO SCH (05:26)
[2021-11-02] MEDS: MULTIVIT W/MINERALS TAB (THERAGRAN M) PO SCH (05:26)
[2021-11-02] MEDS: CATHETER FLUSH 10 ML SYR IV SCH ×2 (05:30→14:09)
[2021-11-02 06:48] LABS: HEMATOCRIT 50 % (40-54); HEMOGLOBIN 16.4 g/dL (13.3-17.7); MEAN CORPUSCULAR HEMOGLOBIN 32 pg (25-34); MEAN CORPUSCULAR HGB CONC 33 g/dL (32-36); MEAN CORPUSCULAR VOLUME 96 fL (80-99); MEAN PLATELET VOLUME 11.6 fL (9.0-12.2); PLATELET COUNT 228 10^3/uL (130-400); WHITE BLOOD COUNT 9.4 10^3/uL (4.3-11.0)
[2021-11-02 06:59] LABS: CHLORIDE 103 MMOL/L (98-107); POTASSIUM 4.2 MMOL/L (3.6-5.0); SODIUM 140 MMOL/L (135-145)
[2021-11-02 07:00] LABS: CALCIUM 9.8 MG/DL (8.5-10.1)
[2021-11-02 07:01] LABS: GLUCOSE 83 MG/DL (70-105)
[2021-11-02 07:02] LABS: CARBON DIOXIDE 26 MMOL/L (21-32)
[2021-11-02 07:05] LABS: CREATININE SERUM 1.46 MG/DL (0.60-1.30); GFR ESTIMATED 46
[2021-11-02 07:06] LABS: BUN/CREATININE RATIO 38
[2021-11-02 07:07] LABS: MAGNESIUM 2.5 MG/DL (1.6-2.4)
[2021-11-02 08:00] VITALS: BP 125/56
[2021-11-02] MEDS: ASPIRIN E.C. 81 MG (ECOTRIN) TAB PO SCH (08:34)
[2021-11-02] MEDS: buPROPion SR 150 MG (WELLBUTRIN SR) TAB PO SCH (08:34)
[2021-11-02] MEDS: DOCUSATE SODIUM 100 MG (COLACE) CAP PO SCH (08:34)
[2021-11-02] MEDS: amLODIPine 5 MG (NORVASC) TAB PO SCH (08:35)
[2021-11-02] MEDS: SIMvastatin 20 MG (ZOCOR) TAB PO SCH (08:35)
[2021-11-02] MEDS: meTOprolol TARTRATE 50 MG (LOPRESSOR) TAB PO SCH ×2 (08:35→20:06)
[2021-11-02] MEDS: RT-ALBUTEROL HFA 8.5 GM INHALER IH SCH ×2 (10:04→19:03)
[2021-11-02 12:00] VITALS: BP 120/61
[2021-11-02 16:00] VITALS: BP 157/69
--- NOTE | 2021-11-02 18:34 | Progress Note ---
Subjective Date Seen by a Provider: Nov 02, 2021 Time Seen by a Provider: 08:30 Subjective/Events-last exam Fwup COVID-19 with acute respiratory failure, Type II CT, Weakness with Falls, Hypertension, confusion. Sitting up in chair. Hard of hearing and some confusion. Eating well per nurse's aid. Objective Exam Vital Signs Date Time Temp Pulse Resp B/P (MAP) Pulse Ox O2 Delivery O2 Flow Rate FiO2 11/02/21 16:00 35.6 57 20 157/69 (98) 91 Nasal Cannula 2.00 11/02/21 12:00 35.1 60 20 120/61 (80) 96 Nasal Cannula 3.00 11/02/21 10:05 92 Nasal Cannula 2.00 11/02/21 08:00 Nasal Cannula 3.00 11/02/21 08:00 35.4 58 20 125/56 (79) 93 Nasal Cannula 3.00 11/02/21 03:00 35.8 61 20 165/58 (93) 94 Nasal Cannula 3.00 11/01/21 23:56 36.0 57 20 153/74 (100) 90 Nasal Cannula 3.00 11/01/21 21:35 95 Nasal Cannula 2.00 11/01/21 20:00 Nasal Cannula 3.00 11/01/21 19:49 36.4 67 20 151/75 (100) 90 Nasal Cannula 3.00 I & O 11/02/21 07:00 Intake Total 1500 ml Output Total 600 ml Balance 900 ml Capillary Refill : Less Than 3 Seconds General Appearance: No Apparent Distress Respiratory: Lungs Clear Cardiovascular: Regular Rate, Rhythm Gastrointestinal: normal bowel sounds, non tender, soft Extremity: Non Tender, No Calf Tenderness, No Pedal Edema Neurologic/Psychiatric: Alert, Oriented x3 Skin: Warm/Dry Results Lab Laboratory Tests 11/02/21 06:12: White Blood Count 9.4, Red Blood Count 5.17, Hemoglobin 16.4, Hematocrit 50, Mean Corpuscular Volume 96, Mean Corpuscular Hemoglobin 32, Mean Corpuscular Hemoglobin Concent 33, Red Cell Distribution Width 14.0, Platelet Count 228, Mean Platelet Volume 11.6, Sodium Level 140, Potassium Level 4.2, Chloride Level 103, Carbon Dioxide Level 26, Anion Gap 11, Blood Urea Nitrogen 56H, Creatinine 1.46H, Estimat Glomerular Filtration Rate 46, BUN/Creatinine Ratio 38, Glucose Level 83, Calcium Level 9.8, Magnesium Level 2.5H, Troponin I < 0.028 Microbiology 10/29/21 Blood Culture - Preliminary, Resulted No growth Assessment/Plan Assessment/Plan Assess & Plan/Chief Complaint 1. Covid-19 with acute Respiratory Failure--on oxygen via NC, on albuterol MDI, on dexamethasone, on lovenox 2. Type II CT--medical management 3. Hypertension--on amlodopine and metoprolol 4. Weakness--up to chair, start PT/OT once able/out of isolation 5. Confusion--worse due to infection Clinical Quality Measures Admission Status Admission Dx 1. Elevated Troponin-I, CK-MB and myoglobin--likely acute CT, will await cardiology evaluation, ECHO done this morning, discussed further workup including chemical stress test or cardiac cath but patient is a complex management due to his history of not tolerating blood thinners, aspirin 81mg daily started and will do SCDs for DVT prophylaxis 2. Acute Congestive Heart Failure--await ECHO results, given one dose of IV lasix in ER and BNP down today 3. Acute Hypoxia due to pulmonary vascular congestion and atelectesis--on oxygen at 2L NC, add IS, repeat CXR in AM 4. Acute on Chronic Renal Insufficiency--will give a 500cc bolus of LR and repeat labs in AM 5. Hypertension--restart metoprolol and amlodopine 6. GERD--restart famotodine 7. Generalized Weakness--patient is generally wheel chair bound GEOVANNA CHASE DO Nov 02, 2021 18:34
[2021-11-02] MEDS: ENOXAPARIN 40 MG/0.4 ML (LOVENOX) SYR SC SCH (18:41)
[2021-11-02 20:05] VITALS: BP 144/61
[2021-11-02] MEDS: FAMOTIDINE 20 MG (PEPCID) TABLET PO SCH (20:06)
[2021-11-03] VITALS (7 sets, daily range): BP systolic 155–180; BP diastolic 53–78
[2021-11-03] MEDS: dexAMETHasone 6 MG TAB (DECADRON) PO SCH (05:35)
[2021-11-03] MEDS: MULTIVIT W/MINERALS TAB (THERAGRAN M) PO SCH (05:35)
[2021-11-03] MEDS: CATHETER FLUSH 10 ML SYR IV SCH ×4 (05:37→20:00)
[2021-11-03 06:23] LABS: POTASSIUM 4.1 MMOL/L (3.6-5.0)
[2021-11-03 06:24] LABS: CALCIUM 9.4 MG/DL (8.5-10.1)
[2021-11-03 06:29] LABS: CREATININE SERUM 1.34 MG/DL (0.60-1.30)
[2021-11-03] MEDS: RT-ALBUTEROL HFA 8.5 GM INHALER IH SCH ×2 (08:00→21:32)
[2021-11-03] MEDS: amLODIPine 5 MG (NORVASC) TAB PO SCH (08:54)
[2021-11-03] MEDS: meTOprolol TARTRATE 50 MG (LOPRESSOR) TAB PO SCH ×2 (08:54→20:00)
[2021-11-03] MEDS: ASPIRIN E.C. 81 MG (ECOTRIN) TAB PO SCH (08:54)
[2021-11-03] MEDS: buPROPion SR 150 MG (WELLBUTRIN SR) TAB PO SCH (08:54)
[2021-11-03] MEDS: SIMvastatin 20 MG (ZOCOR) TAB PO SCH (08:54)
[2021-11-03] MEDS: DOCUSATE SODIUM 100 MG (COLACE) CAP PO SCH (08:54)
[2021-11-03] MEDS: ENOXAPARIN 40 MG/0.4 ML (LOVENOX) SYR SC SCH (18:07)
--- NOTE | 2021-11-03 18:57 | Progress Note ---
Subjective Date Seen by a Provider: Nov 03, 2021 Time Seen by a Provider: 08:35 Subjective/Events-last exam Fwup COVID-19 with acute respiratory failure, Type II [place], Weakness with Falls, Hypertension, confusion. Sitting up in chair eating breakfast. Objective Exam Vital Signs Date Time Temp Pulse Resp B/P (MAP) Pulse Ox O2 Delivery O2 Flow Rate FiO2 11/03/21 15:55 36.2 60 20 163/75 (104) 95 Room Air 11/03/21 15:31 36.0 55 97 32 11/03/21 11:51 36.0 60 22 159/78 (105) 93 Room Air 11/03/21 08:03 Nasal Cannula 2.00 11/03/21 08:01 97 Nasal Cannula 3.00 11/03/21 08:00 Nasal Cannula 2.00 11/03/21 07:43 36.1 55 24 156/53 (87) 95 Nasal Cannula 3.00 11/03/21 04:30 36.4 60 26 162/75 (104) 95 Nasal Cannula 3.00 11/03/21 00:55 36.1 56 28 155/67 (96) 96 Nasal Cannula 3.00 11/02/21 20:30 Nasal Cannula 3.00 11/02/21 20:05 36.2 77 20 144/61 (88) 91 Nasal Cannula 2.00 11/02/21 19:03 91 Nasal Cannula 2.00 I & O 11/03/21 07:00 Intake Total 1200 ml Output Total 850 ml Balance 350 ml Capillary Refill : Less Than 3 Seconds General Appearance: No Apparent Distress Neck: Supple Respiratory: Lungs Clear Cardiovascular: Regular Rate, Rhythm Gastrointestinal: normal bowel sounds, non tender, soft Extremity: Non Tender, No Calf Tenderness, No Pedal Edema Neurologic/Psychiatric: Alert Results Lab Laboratory Tests 11/03/21 05:49: Sodium Level 143, Potassium Level 4.1, Chloride Level 108H, Carbon Dioxide Level 25, Anion Gap 10, Blood Urea Nitrogen 58H, Creatinine 1.34H, Estimat Glomerular Filtration Rate 51, BUN/Creatinine Ratio 43, Glucose Level 96, Calcium Level 9.4 Microbiology 10/29/21 Blood Culture - Preliminary, Resulted No growth Assessment/Plan Assessment/Plan Assess & Plan/Chief Complaint 1. Covid-19 with acute Respiratory Failure--on oxygen via NC, on albuterol MDI, on dexamethasone, on lovenox 2. Type II TX--medical management 3. Hypertension--on amlodopine and metoprolol 4. Weakness--up to chair, DC back to [place] tomorrow with skilled care 5. Confusion--worse due to infection Clinical Quality Measures Admission Status Admission Dx 1. Elevated Troponin-I, CK-MB and myoglobin--likely acute TX, will await cardiology evaluation, ECHO done this morning, discussed further workup includin g chemical stress test or cardiac cath but patient is a complex management due to his history of not tolerating blood thinners, aspirin 81mg daily started and will do SCDs for DVT prophylaxis 2. Acute Congestive Heart Failure--await ECHO results, given one dose of IV lasix in ER and BNP down today 3. Acute Hypoxia due to pulmonary vascular congestion and atelectesis--on oxygen at 2L NC, add IS, repeat CXR in AM 4. Acute on Chronic Renal Insufficiency--will give a 500cc bolus of LR and repeat labs in AM 5. Hypertension--restart metoprolol and amlodopine 6. GERD--restart famotodine 7. Generalized Weakness--patient is generally wheel chair bound GEOVANNA CHASE DO Nov 03, 2021 18:57
[2021-11-03] MEDS ORDERED: ASPI-1238 PO (19:00)
[2021-11-03] MEDS ORDERED: Albuterol Inhaler IH (19:00)
[2021-11-03] MEDS ORDERED: DEXA6TAB PO (19:00)
--- NOTE | 2021-11-03 19:02 | Discharge Inst-Skilled Nursing ---
Discharge Inst-Skilled NF Reconcile Patient Problems Problems Reviewed?: Yes Patient Instructions Goal: Increase strength/decrease fall risk Consult/Follow Up/Orders Follow Up Appt.: Fwup with Dr. Galeano in 2 weeks Skilled NF Admit to: [facility] Certification ([facility]) I certify that [facility] services are required to be given on an inpatient basis because of the above named patient's need for half-way care on a continuing basis for the conditions(s) for which he/she was receiving inpatient hospital services prior to his/her transfer to the [facility]. [facility] Facility Order: Nursing Services, Person Investigator-Evaluate & Treat, Physical Therapy-Evaluate & Treat Oxygen Delivery Method: Room Air Discharge Diet: Low Sodium Diet Daily Activity as Tolerated: Yes Resuscitation Status: Full Code New & Resume Previous Orders Daiana Galeano Nov 03, 2021 19:01 DAIANA GALEANO DO Nov 03, 2021 19:02
[2021-11-03] MEDS: FAMOTIDINE 20 MG (PEPCID) TABLET PO SCH (20:00)
[2021-11-04 00:11] VITALS: BP 174/66
[2021-11-04 04:26] VITALS: BP 157/63
[2021-11-04] MEDS: CATHETER FLUSH 10 ML SYR IV SCH (05:23)
[2021-11-04] MEDS: MULTIVIT W/MINERALS TAB (THERAGRAN M) PO SCH (05:23)
[2021-11-04] MEDS: dexAMETHasone 6 MG TAB (DECADRON) PO SCH (05:23)
[2021-11-04] MEDS: RT-ALBUTEROL HFA 8.5 GM INHALER IH SCH (08:18)
[2021-11-04 08:37] VITALS: BP 179/73
[2021-11-04] MEDS: SIMvastatin 20 MG (ZOCOR) TAB PO SCH (09:34)
[2021-11-04] MEDS: buPROPion SR 150 MG (WELLBUTRIN SR) TAB PO SCH (09:34)
[2021-11-04] MEDS: amLODIPine 5 MG (NORVASC) TAB PO SCH (09:34)
[2021-11-04] MEDS: ASPIRIN E.C. 81 MG (ECOTRIN) TAB PO SCH (09:34)
[2021-11-04] MEDS: meTOprolol TARTRATE 50 MG (LOPRESSOR) TAB PO SCH (09:34)
[2021-11-04] MEDS: DOCUSATE SODIUM 100 MG (COLACE) CAP PO SCH (09:34)
--- NOTE | 2021-11-06 03:26 | Physician Query Clarification ---
PQ-Present on Admission Admission/Discharge Admission Date: Oct 29, 2021 at 21:00 Discharge Date: Nov 04, 2021 at 14:15 GEOVANNA Juan DO History&risk factors: 86 y/o male patient presents with hypoxia and elevated troponin, CK-MB and myoglobin likely acute PA, COVID PNA documented in medical r ecord. Hand P, 10/30: Acute PA, acute congestive heart failure, acute hypoxia due to pulmonary vascular congestion and atelectesis. Progress notes, 10/31: Acute respiratory failure due to COVID-19, elevated tro ponin HFPEF likely secondary to hypoxia. Cardiology progress notes, 10/31: Type II PA, congestive heart failure, hypoxia secondary to COVID-19 pneumonia, pulmonary edema. Clinical findings:SARS COV 2 detected in RT PCR on 10/29, hypoxia, prolactin- 0.10 H, required oxygen, chest X ray with bilateral infiltrates. Treatment: Decadron, supplemental oxygen. Question: COVID PNA was documented in Progress notes, 10/31. Can you specify if this condition was present on admission? Please document a response in Progress Note or Discharge Summary. 1. Yes - Condition was present at the time of inpatient admission. 2. No - Condition was not present at the time of inpatient admission and it developed during the inpatient stay. 3. W - Provider is unable to clinically determine whether condition was present on admission or not. 4. Other [please specify] PHYSICIAN RESPONSE Condition was Present on Admit: Other, specify below Explanation of clincal finding Covid-19 was present on admission Please remember a lack of response to the above will prompt a phone page by [facility]/Coding staff. In responding to this query, please exercise your independent professional judgment. The purpose of this communication is to more accurately reflect the complexity of your patients condition. The fact that a question is asked does not imply that any particular answer is desired or expected. Thank you for your timely response to this clarification. Requestors name: [ ] Phone # [ ] THIS PHYSICIAN QUERY FORM IS A PERMANENT PART OF THE MEDICAL RECORD MARIZA SY Nov 06, 2021 03:26 GEOVANNA CHASE DO Nov 06, 2021 17:27
== END 2021-11-04 14:15 | DRG 177 ==
LOC: EDUNIT# 19:28 → ER 19:29 → 4TH 21:00
PROVIDERS: ADMIT Internal Medicine Cardiovascular Disease; ATTEND Family Medicine
DX: U07.1 COVID-19 (principal); J96.01 Acute respiratory failure with hypoxia; I21.A1 Myocardial infarction type 2; I50.33 Acute on chronic diastolic (congestive) heart failure; J12.82 Pneumonia due to coronavirus disease 2019; I13.0 Hypertensive heart and chronic kidney disease with heart failure and stage 1 through stage 4 chronic kidney disease, or unspecified chronic kidney disease; J98.11 Atelectasis; N17.9 Acute kidney failure, unspecified; K21.9 Gastro-esophageal reflux disease without esophagitis; R53.1 Weakness; F03.90 Unspecified dementia, unspecified severity, without behavioral disturbance, psychotic disturbance, mood disturbance, and anxiety; Z79.82 Long term (current) use of aspirin; Z79.899 Other long term (current) drug therapy; I48.91 Unspecified atrial fibrillation; Z86.73 Personal history of transient ischemic attack (TIA), and cerebral infarction without residual deficits; M19.90 Unspecified osteoarthritis, unspecified site; F32.A Depression, unspecified; N40.0 Benign prostatic hyperplasia without lower urinary tract symptoms; E78.00 Pure hypercholesterolemia, unspecified; R53.81 Other malaise; N18.31 Chronic kidney disease, stage 3a
CPT/HCPCS: 36415; 51701; 70450; 71045; 72125; 72170; 80048; 80053; 80061; 81000; 82550; 82553; 82947; 83605; 83690; 83735; 83874; 83880; 84145; 84443; 84484; 85007; 85025; 85027; 85379; 85610; 85652; 85730; 86141; 87040; 87635; 87636; 87804; 93005; 93041; 93306; 94640; 94760; 96374